=== PATIENT | male | born 1980 | race Caucasian/White ===

== ENCOUNTER 2020-08-10 13:36 | Inpatient (IN) | payer OTHER ==
[~2020-08-10] VITALS: Ht 180.3 cm; Wt 126.0 kg
[2020-08-10] MEDS ORDERED: GLIP5 PO (14:21)
[2020-08-10] MEDS ORDERED: ALBU8HFA IH (14:21)
[2020-08-10] MEDS ORDERED: LOSA50TA37 PO (14:21)
[2020-08-10] MEDS ORDERED: NAPR-1025 PO (14:21)
[2020-08-10] MEDS ORDERED: INSREG SQ (14:21)
[2020-08-10] MEDS ORDERED: AMLO-258 PO (14:21)
[2020-08-10] MEDS ORDERED: ATOR40TA28 PO (14:21)
[2020-08-10] MEDS ORDERED: GABA-1201 PO (14:21)
[2020-08-10] MEDS ORDERED: INSLAN SQ (14:21)
[2020-08-10] MEDS ORDERED: METF-960 PO (14:21)
[2020-08-10] MEDS ORDERED: ATEN-73 PO (14:21)
[2020-08-10] MEDS ORDERED: FURO40 PO (14:21)
[2020-08-10] MEDS ORDERED: CLOT15CR73 TP (14:21)
[2020-08-10 16:05] LABS: ANION GAP 8 mmol/L (8-16); CARBON DIOXIDE 29 mmol/L (22-29); CHLORIDE 103 mmol/L (98-107); CREATININE 1.13 mg/dL (0.60-1.30); GLOMERULAR FILTR. RATE CALC > 60 mL/min (>60); GLUCOSE,RANDOM 244 mg/dL (70-110); POTASSIUM 4.4 mmol/L (3.5-5.1); SODIUM SERUM 140 mmol/L (136-145); UREA NITROGEN, BLOOD 21 mg/dL (7-18)
[2020-08-10 16:19] LABS: COVID AG,FIA SOURCE NASOPHARYNGEAL
[2020-08-10 16:34] LABS: ALANINE AMINOTRANSFERASE 70 U/L (12-78); ALBUMIN 3.7 g/dL (3.4-5.0); ALKALINE PHOSPHATASE 123 U/L (46-116); ASPARTATE AMINOTRANSFERASE 25 U/L (15-37); BILIRUBIN,TOTAL 0.3 mg/dL (0.1-1.0); CREATINE KINASE, TOTAL ONLY 356 U/L (39-308); TOTAL PROTEIN, SERUM 7.9 g/dL (6.4-8.2)
[2020-08-10 16:59] LABS: AMPHET/METH SCREEN,URINE NEGATIVE (NEGATIVE); BARBITURATE SCREEN, URINE NEGATIVE (NEGATIVE); BENZODIAZEPINES SCREEN,URINE NEGATIVE (NEGATIVE); CANNABINOID SCREEN,URINE NEGATIVE (NEGATIVE); COCAINE SCREEN,URINE NEGATIVE (NEGATIVE); METHADONE SCREEN, URINE NEGATIVE (NEGATIVE); OPIATE SCREEN,URINE NEGATIVE (NEGATIVE)
[2020-08-10] MEDS ORDERED: VANCOMYCIN HCL 1 GM/D5% WATER 200 ML IV ONE ×2 (17:00→23:00)
[2020-08-10] MEDS ORDERED: 0.9% SODIUM CHLORIDE 10 ML SYRINGE IVP PRN (17:00)
[2020-08-10] MEDS ORDERED: ONDANSETRON HCL 4 MG/2 ML VIAL IVP PRN (17:00)
[2020-08-10] MEDS ORDERED: ACETAMINOPHEN 325 MG TABLET PO PRN ×2 (17:00→17:45)
[2020-08-10] MEDS ORDERED: KETOROLAC TROMETHAMINE 30 MG/ML VIAL IVP ONE ×2 (17:00→21:15)
[2020-08-10 17:02] LABS: PHENCYCLIDINE SCREEN,URINE NEGATIVE (NEGATIVE)
[2020-08-10] MEDS ORDERED: DEXTROSE 50%-WATER 25 GM/50 ML SYRINGE IVP PRN (17:45)
[2020-08-10] MEDS ORDERED: ALBUTEROL SULFATE HFA 90 MCG/PUFF 8 GM INHALER IH PRN (18:15)
[2020-08-10 18:29] LABS: BASOPHILS % (AUTO) 0.6 % (0.0-2.0); EOSINOPHILS % (AUTO) 2.6 % (1.0-6.0); HEMATOCRIT 27.5 % (41-53); HEMOGLOBIN 8.9 g/dL (13.5-17.5); LYMPHOCYTES # (AUTO) 1.5 K/uL (1.0-4.8); LYMPHOCYTES % (AUTO) 18.1 % (22.0-44.0); MEAN CORPUSCULAR HEMOGLOBIN 27.4 pg (26.0-34.0); MEAN CORPUSCULAR HGB CONC 32.6 G/dL (31.0-37.0); MEAN CORPUSCULAR VOLUME 84 fL (80-100); MONOCYTES # (AUTO) 0.7 K/uL (0.1-1.0); MONOCYTES % (AUTO) 8.8 % (2.0-9.0); NEUTROPHILS # (AUTO) 5.9 K/uL (1.8-7.7); NEUTROPHILS % (AUTO) 69.9 % (40.0-70.0); PLATELET COUNT (AUTO) 287 K/uL (150-450); RED BLOOD CELL COUNT(AUTO) 3.27 MIL/uL (4.50-5.90)
[2020-08-10] MEDS ORDERED: PIPERACILLIN/TAZO 3.375 GM/D5W 50 ML IV ONE (20:15)
[2020-08-10] MEDS ORDERED: CARVEDILOL 3.125 MG TABLET PO SCH (21:00)
[2020-08-10] MEDS ORDERED: ACETAMINOPHEN 500 MG TABLET PO ONE (21:15)
[2020-08-10] MEDS: DOCUSATE SODIUM 100 MG CAPSULE PO SCH (21:40)
[2020-08-11] MEDS: HEPARIN SODIUM,PORCINE 5,000 UNITS/ML VIAL SQ SCH ×3 (00:26→16:11)
[2020-08-11 01:42] VITALS: BP 156/75
[2020-08-11] MEDS ORDERED: INFLUENZA VIRUS VACCINE QVS 2020-21 (6MO+)/PF 60 MCG/0.5 ML SYRINGE IM ONE (05:15)
[2020-08-11] MEDS: VANCOMYCIN HCL 1.25 GM in DEXTROSE 5%-WATER 250 ML IV SCH ×3 (06:54→23:04)
[2020-08-11] MEDS ORDERED: SODIUM CHLORIDE 0.9% 250 ML IV ONE (06:56)
[2020-08-11] MEDS: INSULIN LISPRO 100 UNITS/ML SQ PRN ×4 (07:10→20:41)
[2020-08-11 07:54] LABS: GLUCOMETER DEV NAME(LOC) 6N.2; GLUCOSE,POINT OF CARE 230 MG/DL (70-110)
[2020-08-11 08:42] LABS: ANION GAP 10 mmol/L (8-16); CALCIUM, TOTAL 8.6 mg/dL (8.8-10.5); CARBON DIOXIDE 25 mmol/L (22-29); CHLORIDE 105 mmol/L (98-107); CREATININE 1.22 mg/dL (0.60-1.30); GLOMERULAR FILTR. RATE CALC > 60 mL/min (>60); GLUCOSE,RANDOM 244 mg/dL (70-110); POTASSIUM 4.4 mmol/L (3.5-5.1); SODIUM SERUM 140 mmol/L (136-145); UREA NITROGEN, BLOOD 21 mg/dL (7-18)
[2020-08-11 09:29] VITALS: BP 149/91
[2020-08-11] MEDS: FUROSEMIDE 40 MG/4 ML VIAL IVP SCH (09:35)
[2020-08-11] MEDS: ATORVASTATIN CALCIUM 20 MG TABLET PO SCH (09:36)
[2020-08-11] MEDS: DOCUSATE SODIUM 100 MG CAPSULE PO SCH ×2 (09:36→20:33)
[2020-08-11] MEDS: FAMOTIDINE 20 MG TABLET PO SCH (09:36)
[2020-08-11] MEDS: ASPIRIN 81 MG CHEWABLE TABLET PO SCH (09:36)
[2020-08-11] MEDS: CARVEDILOL 6.25 MG TABLET PO SCH ×2 (09:36→20:33)
[2020-08-11] MEDS: INSULIN GLARGINE,HUM.REC.ANLOG 100 UNITS/ML SQ SCH ×2 (10:12→20:42)
[2020-08-11 13:13] LABS: GLUCOMETER DEV NAME(LOC) 6S.1; GLUCOSE,POINT OF CARE 292 MG/DL (70-110)
[2020-08-11] MEDS: GABAPENTIN 400 MG CAPSULE PO SCH ×2 (13:14→20:34)
[2020-08-11 18:20] LABS: GLUCOMETER DEV NAME(LOC) 6S.1; GLUCOSE,POINT OF CARE 287 MG/DL (70-110)
[2020-08-11 20:24] VITALS: BP 138/74
[2020-08-12 04:40] VITALS: BP 128/64
[2020-08-12] MEDS: INSULIN LISPRO 100 UNITS/ML SQ PRN ×4 (06:46→21:36)
[2020-08-12] MEDS: VANCOMYCIN HCL 1.25 GM in DEXTROSE 5%-WATER 250 ML IV SCH ×3 (06:48→22:43)
[2020-08-12] MEDS: GABAPENTIN 400 MG CAPSULE PO SCH ×2 (06:49→21:31)
[2020-08-12] MEDS: ASPIRIN 81 MG CHEWABLE TABLET PO SCH (08:00)
[2020-08-12] MEDS: ATORVASTATIN CALCIUM 20 MG TABLET PO SCH (08:00)
[2020-08-12] MEDS: HEPARIN SODIUM,PORCINE 5,000 UNITS/ML VIAL SQ SCH ×4 (08:00→23:40)
[2020-08-12] MEDS: FUROSEMIDE 40 MG/4 ML VIAL IVP SCH (08:00)
[2020-08-12] MEDS: DOCUSATE SODIUM 100 MG CAPSULE PO SCH ×2 (08:00→21:31)
[2020-08-12] MEDS: FAMOTIDINE 20 MG TABLET PO SCH (08:00)
[2020-08-12] MEDS: CARVEDILOL 6.25 MG TABLET PO SCH ×2 (08:00→21:31)
[2020-08-12] MEDS: INSULIN GLARGINE,HUM.REC.ANLOG 100 UNITS/ML SQ SCH ×2 (08:33→21:37)
[2020-08-12] MEDS ORDERED: GABAPENTIN 400 MG CAPSULE PO SCH (09:00)
[2020-08-12 09:40] VITALS: BP 150/76
[2020-08-12 11:55] LABS: GLUCOMETER DEV NAME(LOC) 6S.1; GLUCOSE,POINT OF CARE 364 MG/DL (70-110)
[2020-08-12 11:55] LABS: GLUCOMETER DEV NAME(LOC) 6S.1; GLUCOSE,POINT OF CARE 266 MG/DL (70-110)
[2020-08-12 12:57] LABS: ANION GAP 7 mmol/L (8-16); CALCIUM, TOTAL 8.7 mg/dL (8.8-10.5); CARBON DIOXIDE 27 mmol/L (22-29); CHLORIDE 99 mmol/L (98-107); CREATININE 1.19 mg/dL (0.60-1.30); GLOMERULAR FILTR. RATE CALC > 60 mL/min (>60); GLUCOSE,RANDOM 380 mg/dL (70-110); POTASSIUM 4.6 mmol/L (3.5-5.1); SODIUM SERUM 133 mmol/L (136-145); UREA NITROGEN, BLOOD 21 mg/dL (7-18); VANCOMYCIN,RANDOM 29.3 mcg/mL (25.0-50.0)
[2020-08-12 16:16] LABS: GLUCOMETER DEV NAME(LOC) 6S.1; GLUCOSE,POINT OF CARE 305 MG/DL (70-110)
[2020-08-12 16:23] VITALS: BP 151/84
[2020-08-12 20:15] VITALS: BP 136/74
[2020-08-12 21:16] LABS: GLUCOMETER DEV NAME(LOC) 6N.2; GLUCOSE,POINT OF CARE 359 MG/DL (70-110)
[2020-08-12 22:13] LABS: GLUCOMETER DEV NAME(LOC) 6S.1; GLUCOSE,POINT OF CARE 347 MG/DL (70-110)
[2020-08-13 04:15] VITALS: BP 147/71
[2020-08-13] MEDS: INSULIN LISPRO 100 UNITS/ML SQ PRN ×4 (05:52→21:21)
[2020-08-13 06:54] LABS: GLUCOMETER DEV NAME(LOC) 6N.2; GLUCOSE,POINT OF CARE 331 MG/DL (70-110)
[2020-08-13 07:24] LABS: HEMATOCRIT 30.8 % (41-53); HEMOGLOBIN 10.1 g/dL (13.5-17.5); LYMPHOCYTES # (AUTO) 1.6 K/uL (1.0-4.8); MEAN CORPUSCULAR HEMOGLOBIN 27.2 pg (26.0-34.0); MEAN CORPUSCULAR HGB CONC 32.8 G/dL (31.0-37.0); MEAN CORPUSCULAR VOLUME 83 fL (80-100); MONOCYTES # (AUTO) 0.6 K/uL (0.1-1.0); MONOCYTES % (AUTO) 7.3 % (2.0-9.0); NEUTROPHILS % (AUTO) 64.7 % (40.0-70.0); PLATELET COUNT (AUTO) 361 K/uL (150-450); RED BLOOD CELL COUNT(AUTO) 3.72 MIL/uL (4.50-5.90); RED CELL DISTRIBUTION WIDTH 14.4 % (11.5-14.5)
[2020-08-13 07:46] LABS: ANION GAP 9 mmol/L (8-16); CALCIUM, TOTAL 8.6 mg/dL (8.8-10.5); CARBON DIOXIDE 26 mmol/L (22-29); CHLORIDE 101 mmol/L (98-107); CREATININE 1.23 mg/dL (0.60-1.30); GLOMERULAR FILTR. RATE CALC > 60 mL/min (>60); GLUCOSE,RANDOM 340 mg/dL (70-110); POTASSIUM 4.9 mmol/L (3.5-5.1); SODIUM SERUM 136 mmol/L (136-145); UREA NITROGEN, BLOOD 26 mg/dL (7-18)
[2020-08-13 08:10] VITALS: BP 133/73
[2020-08-13] MEDS: ASPIRIN 81 MG CHEWABLE TABLET PO SCH (09:51)
[2020-08-13] MEDS: ATORVASTATIN CALCIUM 20 MG TABLET PO SCH (09:51)
[2020-08-13] MEDS: CARVEDILOL 6.25 MG TABLET PO SCH ×2 (09:53→21:12)
[2020-08-13] MEDS: HEPARIN SODIUM,PORCINE 5,000 UNITS/ML VIAL SQ SCH ×3 (09:53→23:25)
[2020-08-13] MEDS: DOCUSATE SODIUM 100 MG CAPSULE PO SCH ×2 (09:53→21:12)
[2020-08-13] MEDS: FAMOTIDINE 20 MG TABLET PO SCH (09:53)
[2020-08-13] MEDS ORDERED: INSULIN GLARGINE,HUM.REC.ANLOG 100 UNITS/ML SQ ONE (10:15)
[2020-08-13] MEDS ORDERED: ASPI-1111 PO (10:18)
[2020-08-13] MEDS ORDERED: CARV6 PO (10:19)
[2020-08-13] MEDS ORDERED: DOCU-275 PO (10:20)
[2020-08-13] MEDS ORDERED: FAMO20 PO (10:20)
[2020-08-13] MEDS ORDERED: SULF1TAB42 PO (10:23)
[2020-08-13] MEDS: GABAPENTIN 400 MG CAPSULE PO SCH ×2 (11:53→21:12)
[2020-08-13 14:20] LABS: GLUCOMETER DEV NAME(LOC) 6S.1; GLUCOSE,POINT OF CARE 373 MG/DL (70-110)
[2020-08-13] MEDS: MetFORMIN HCL 500 MG TABLET PO SCH (16:58)
[2020-08-13 17:52] LABS: GLUCOMETER DEV NAME(LOC) 6N.2; GLUCOSE,POINT OF CARE 336 MG/DL (70-110)
[2020-08-13 19:58] VITALS: BP 152/80
[2020-08-13] MEDS ORDERED: INSULIN GLARGINE,HUM.REC.ANLOG 100 UNITS/ML SQ SCH ×2 (21:00)
[2020-08-13] MEDS: SULFAMETHOX/TRIMETH DS 800-160 MG/TABLET PO SCH (21:12)
[2020-08-13] MEDS: INSULIN GLARGINE,HUM.REC.ANLOG 100 UNITS/ML SQ SCH (21:22)
[2020-08-13 21:46] LABS: GLUCOMETER DEV NAME(LOC) 6N.2; GLUCOSE,POINT OF CARE 341 MG/DL (70-110)
[2020-08-14 05:37] VITALS: BP 157/79
[2020-08-14] MEDS: INSULIN LISPRO 100 UNITS/ML SQ PRN ×4 (05:55→20:58)
[2020-08-14 06:43] LABS: GLUCOMETER DEV NAME(LOC) 6N.2; GLUCOSE,POINT OF CARE 305 MG/DL (70-110)
[2020-08-14 06:57] LABS: CREATININE 1.32 mg/dL (0.60-1.30); POTASSIUM 4.8 mmol/L (3.5-5.1); VANCOMYCIN,RANDOM 5.2 mcg/mL (25.0-50.0)
[2020-08-14 07:40] VITALS: BP 143/95
[2020-08-14] MEDS: ASPIRIN 81 MG CHEWABLE TABLET PO SCH (08:49)
[2020-08-14] MEDS: CARVEDILOL 6.25 MG TABLET PO SCH ×2 (08:49→20:34)
[2020-08-14] MEDS: ATORVASTATIN CALCIUM 20 MG TABLET PO SCH (08:49)
[2020-08-14] MEDS: DOCUSATE SODIUM 100 MG CAPSULE PO SCH ×2 (08:49→20:34)
[2020-08-14] MEDS: FAMOTIDINE 20 MG TABLET PO SCH (08:49)
[2020-08-14] MEDS: HEPARIN SODIUM,PORCINE 5,000 UNITS/ML VIAL SQ SCH ×3 (08:49→23:27)
[2020-08-14] MEDS: SULFAMETHOX/TRIMETH DS 800-160 MG/TABLET PO SCH ×2 (08:49→20:34)
[2020-08-14] MEDS: MetFORMIN HCL 500 MG TABLET PO SCH (08:49)
[2020-08-14] MEDS: GABAPENTIN 400 MG CAPSULE PO SCH ×2 (08:49→20:35)
[2020-08-14] MEDS: FUROSEMIDE 20 MG TABLET PO SCH (08:49)
[2020-08-14] MEDS: INSULIN GLARGINE,HUM.REC.ANLOG 100 UNITS/ML SQ SCH (08:55)
[2020-08-14] MEDS ORDERED: INSULIN GLARGINE,HUM.REC.ANLOG 100 UNITS/ML SQ ONE (11:15)
[2020-08-14] MEDS ORDERED: MetFORMIN HCL 500 MG TABLET PO SCH (18:00)
[2020-08-14 19:55] LABS: GLUCOMETER DEV NAME(LOC) 6N.2; GLUCOSE,POINT OF CARE 317 MG/DL (70-110)
[2020-08-14 19:55] LABS: GLUCOMETER DEV NAME(LOC) 6N.2; GLUCOSE,POINT OF CARE 318 MG/DL (70-110)
[2020-08-14 20:32] VITALS: BP 130/80
[2020-08-14] MEDS ORDERED: INSULIN GLARGINE,HUM.REC.ANLOG 100 UNITS/ML SQ SCH (21:00)
[2020-08-15 00:56] LABS: GLUCOMETER DEV NAME(LOC) 6N.2; GLUCOSE,POINT OF CARE 274 MG/DL (70-110)
[2020-08-15 05:26] VITALS: BP 141/86
[2020-08-15] MEDS: INSULIN LISPRO 100 UNITS/ML SQ PRN ×4 (05:55→21:02)
[2020-08-15 06:10] LABS: GLUCOMETER DEV NAME(LOC) 6S.1; GLUCOSE,POINT OF CARE 293 MG/DL (70-110)
[2020-08-15 06:54] LABS: CALCIUM, TOTAL 8.6 mg/dL (8.8-10.5); CREATININE 1.52 mg/dL (0.60-1.30); POTASSIUM 5.5 mmol/L (3.5-5.1)
[2020-08-15 07:39] VITALS: BP 126/73
[2020-08-15] MEDS: GABAPENTIN 400 MG CAPSULE PO SCH ×2 (08:23→21:03)
[2020-08-15] MEDS: SULFAMETHOX/TRIMETH DS 800-160 MG/TABLET PO SCH ×2 (08:23→21:03)
[2020-08-15] MEDS: FAMOTIDINE 20 MG TABLET PO SCH (08:23)
[2020-08-15] MEDS: DOCUSATE SODIUM 100 MG CAPSULE PO SCH ×2 (08:23→21:03)
[2020-08-15] MEDS: CARVEDILOL 6.25 MG TABLET PO SCH ×2 (08:24→21:03)
[2020-08-15] MEDS: ATORVASTATIN CALCIUM 20 MG TABLET PO SCH (08:24)
[2020-08-15] MEDS: ASPIRIN 81 MG CHEWABLE TABLET PO SCH (08:24)
[2020-08-15] MEDS: HEPARIN SODIUM,PORCINE 5,000 UNITS/ML VIAL SQ SCH ×2 (08:24→16:43)
[2020-08-15] MEDS: FUROSEMIDE 20 MG TABLET PO SCH (08:24)
[2020-08-15] MEDS: INSULIN GLARGINE,HUM.REC.ANLOG 100 UNITS/ML SQ SCH ×2 (08:40→21:03)
[2020-08-15 16:35] LABS: GLUCOMETER DEV NAME(LOC) 6N.2; GLUCOSE,POINT OF CARE 277 MG/DL (70-110)
[2020-08-15 19:48] LABS: GLUCOMETER DEV NAME(LOC) 6S.1; GLUCOSE,POINT OF CARE 304 MG/DL (70-110)
[2020-08-15 20:19] VITALS: BP 149/78
[2020-08-15 22:06] LABS: GLUCOMETER DEV NAME(LOC) 6N.2; GLUCOSE,POINT OF CARE 337 MG/DL (70-110)
[2020-08-16] MEDS: HEPARIN SODIUM,PORCINE 5,000 UNITS/ML VIAL SQ SCH ×3 (00:10→17:13)
[2020-08-16] MEDS: INSULIN LISPRO 100 UNITS/ML SQ PRN ×4 (05:29→21:59)
[2020-08-16 05:30] VITALS: BP 142/84
[2020-08-16 07:58] LABS: CALCIUM, TOTAL 8.6 mg/dL (8.8-10.5); CREATININE 1.54 mg/dL (0.60-1.30); POTASSIUM 4.7 mmol/L (3.5-5.1)
[2020-08-16] MEDS: DOCUSATE SODIUM 100 MG CAPSULE PO SCH ×2 (08:30→19:55)
[2020-08-16] MEDS: CARVEDILOL 6.25 MG TABLET PO SCH ×2 (08:30→19:55)
[2020-08-16] MEDS: FUROSEMIDE 20 MG TABLET PO SCH (08:30)
[2020-08-16] MEDS: GABAPENTIN 400 MG CAPSULE PO SCH ×2 (08:30→19:55)
[2020-08-16] MEDS: SULFAMETHOX/TRIMETH DS 800-160 MG/TABLET PO SCH (08:30)
[2020-08-16] MEDS: ASPIRIN 81 MG CHEWABLE TABLET PO SCH (08:30)
[2020-08-16] MEDS: FAMOTIDINE 20 MG TABLET PO SCH (08:30)
[2020-08-16] MEDS: ATORVASTATIN CALCIUM 20 MG TABLET PO SCH (08:30)
[2020-08-16] MEDS: INSULIN GLARGINE,HUM.REC.ANLOG 100 UNITS/ML SQ SCH ×3 (08:50→20:04)
[2020-08-16 08:51] VITALS: BP 140/81
[2020-08-16] MEDS ORDERED: SODIUM CHLORIDE 0.9% 1,000 ML IV ONE (09:00)
[2020-08-16 16:22] LABS: GLUCOMETER DEV NAME(LOC) 6N.2; GLUCOSE,POINT OF CARE 284 MG/DL (70-110)
[2020-08-16 16:23] LABS: GLUCOMETER DEV NAME(LOC) 6N.2; GLUCOSE,POINT OF CARE 293 MG/DL (70-110)
[2020-08-16] MEDS: GlipiZIDE 10 MG TABLET PO SCH (17:32)
[2020-08-16 19:19] LABS: GLUCOMETER DEV NAME(LOC) 6S.1; GLUCOSE,POINT OF CARE 373 MG/DL (70-110)
[2020-08-16 19:48] VITALS: BP 143/74
[2020-08-17] MEDS: HEPARIN SODIUM,PORCINE 5,000 UNITS/ML VIAL SQ SCH ×4 (00:01→23:20)
[2020-08-17 00:20] LABS: GLUCOMETER DEV NAME(LOC) 6S.1; GLUCOSE,POINT OF CARE 290 MG/DL (70-110)
[2020-08-17 05:12] VITALS: BP 126/62
[2020-08-17] MEDS: INSULIN LISPRO 100 UNITS/ML SQ PRN ×4 (06:28→20:19)
[2020-08-17] MEDS: GlipiZIDE 10 MG TABLET PO SCH ×2 (06:34→17:51)
[2020-08-17 07:39] LABS: CALCIUM, TOTAL 8.2 mg/dL (8.8-10.5); CREATININE 1.41 mg/dL (0.60-1.30); POTASSIUM 4.7 mmol/L (3.5-5.1)
[2020-08-17 07:48] LABS: GLUCOMETER DEV NAME(LOC) 6S.1; GLUCOSE,POINT OF CARE 257 MG/DL (70-110)
[2020-08-17] MEDS: ASPIRIN 81 MG CHEWABLE TABLET PO SCH (08:01)
[2020-08-17] MEDS: ATORVASTATIN CALCIUM 20 MG TABLET PO SCH (08:01)
[2020-08-17] MEDS: FUROSEMIDE 20 MG TABLET PO SCH (08:01)
[2020-08-17] MEDS: DOCUSATE SODIUM 100 MG CAPSULE PO SCH ×2 (08:01→20:12)
[2020-08-17] MEDS: FAMOTIDINE 20 MG TABLET PO SCH (08:01)
[2020-08-17] MEDS: GABAPENTIN 400 MG CAPSULE PO SCH ×2 (08:01→20:13)
[2020-08-17] MEDS: CARVEDILOL 6.25 MG TABLET PO SCH ×2 (08:01→20:13)
[2020-08-17] MEDS: INSULIN GLARGINE,HUM.REC.ANLOG 100 UNITS/ML SQ SCH ×2 (08:04→20:20)
[2020-08-17] MEDS ORDERED: INSULIN GLARGINE,HUM.REC.ANLOG 100 UNITS/ML SQ ONE (09:00)
[2020-08-17] MEDS ORDERED: INSULIN GLARGINE,HUM.REC.ANLOG 100 UNITS/ML SQ SCH (09:00)
[2020-08-17 09:13] VITALS: BP 131/74
[2020-08-17] MEDS ORDERED: ALBU8HFA IH ×2 (09:47)
[2020-08-17] MEDS ORDERED: ASPI-1111 PO (09:48)
[2020-08-17] MEDS ORDERED: ATEN-73 PO (09:48)
[2020-08-17] MEDS ORDERED: ATOR40TA28 PO (09:48)
[2020-08-17] MEDS ORDERED: FAMO20 PO (09:49)
[2020-08-17] MEDS ORDERED: CARV6 PO (09:49)
[2020-08-17] MEDS ORDERED: DOCU-275 PO (09:49)
[2020-08-17] MEDS ORDERED: FURO20 PO (09:49)
[2020-08-17] MEDS ORDERED: GABA-1201 PO (09:50)
[2020-08-17] MEDS ORDERED: INSREG SQ (09:51)
[2020-08-17] MEDS ORDERED: GLIP10 PO (09:52)
[2020-08-17] MEDS ORDERED: INSLAN SQ (09:53)
[2020-08-17] MEDS ORDERED: HEPA500018 SQ (09:53)
[2020-08-17] MEDS ORDERED: ACET-2865 PO (09:54)
[2020-08-17] MEDS ORDERED: INSU100V SQ (10:02)
[2020-08-17] MEDS ORDERED: INSULIN LISPRO 100 UNITS/ML SQ ONE (12:00)
[2020-08-17 12:23] LABS: GLUCOMETER DEV NAME(LOC) 6S.1; GLUCOSE,POINT OF CARE 375 MG/DL (70-110)
[2020-08-17 14:33] LABS: GLUCOMETER DEV NAME(LOC) 6S.1; GLUCOSE,POINT OF CARE 409 MG/DL (70-110)
[2020-08-17 18:37] LABS: GLUCOMETER DEV NAME(LOC) 6S.1; GLUCOSE,POINT OF CARE 293 MG/DL (70-110)
[2020-08-17 20:19] VITALS: BP 144/82
[2020-08-18 00:08] LABS: GLUCOMETER DEV NAME(LOC) 6S.1; GLUCOSE,POINT OF CARE 402 MG/DL (70-110)
[2020-08-18 04:15] VITALS: BP 135/78
[2020-08-18] MEDS: INSULIN LISPRO 100 UNITS/ML SQ PRN (05:53)
[2020-08-18 06:16] LABS: GLUCOMETER DEV NAME(LOC) 6N.1; GLUCOSE,POINT OF CARE 266 MG/DL (70-110)
[2020-08-18] MEDS: GlipiZIDE 10 MG TABLET PO SCH (06:27)
[2020-08-18 08:00] VITALS: BP 134/80
[2020-08-18] MEDS: DOCUSATE SODIUM 100 MG CAPSULE PO SCH (08:30)
[2020-08-18] MEDS: CARVEDILOL 6.25 MG TABLET PO SCH (08:30)
[2020-08-18] MEDS: ASPIRIN 81 MG CHEWABLE TABLET PO SCH (08:30)
[2020-08-18] MEDS: GABAPENTIN 400 MG CAPSULE PO SCH (08:31)
[2020-08-18] MEDS: HEPARIN SODIUM,PORCINE 5,000 UNITS/ML VIAL SQ SCH (08:31)
[2020-08-18] MEDS: FUROSEMIDE 20 MG TABLET PO SCH (08:31)
[2020-08-18] MEDS: ATORVASTATIN CALCIUM 20 MG TABLET PO SCH (08:31)
[2020-08-18] MEDS: FAMOTIDINE 20 MG TABLET PO SCH (08:31)
[2020-08-18] MEDS: INSULIN GLARGINE,HUM.REC.ANLOG 100 UNITS/ML SQ SCH (08:40)
[2020-08-18 08:41] VITALS: BP_SYST 133
[2020-08-18] MEDS ORDERED: ATOR20TA86 PO (10:41)
== END 2020-08-18 12:15 | DRG 603 ==
LOC: EMS 13:40 → 6N 17:52 → 6S 08-13 08:19
PROVIDERS: ADMIT Internal Medicine; ATTEND Internal Medicine
DX: L03.031 Cellulitis of right toe (principal); E44.0 Moderate protein-calorie malnutrition; N17.9 Acute kidney failure, unspecified; E87.1 Hypo-osmolality and hyponatremia; E11.65 Type 2 diabetes mellitus with hyperglycemia; E11.40 Type 2 diabetes mellitus with diabetic neuropathy, unspecified; J45.909 Unspecified asthma, uncomplicated; E66.01 Morbid (severe) obesity due to excess calories; E78.00 Pure hypercholesterolemia, unspecified; Z20.828 Contact with and (suspected) exposure to other viral communicable diseases; E11.621 Type 2 diabetes mellitus with foot ulcer; D63.8 Anemia in other chronic diseases classified elsewhere; L97.519 Non-pressure chronic ulcer of other part of right foot with unspecified severity; L97.529 Non-pressure chronic ulcer of other part of left foot with unspecified severity; Z79.4 Long term (current) use of insulin; Z87.891 Personal history of nicotine dependence; Z68.38 Body mass index [BMI] 38.0-38.9, adult; Z79.899 Other long term (current) drug therapy
CPT/HCPCS: 83735; 87426; 93005; 93306; J1644; J1815; J1885; J1940; J2543; J3370; J7030; J7050; J7060; 36415-L1; 36415-TC; 71045-TC; 80202-TC; U0003

== ENCOUNTER 2021-03-19 08:40 | Inpatient (IN) | payer OTHER ==
[~2021-03-19] VITALS: Ht 170.2 cm; Wt 129.3 kg
[~2021-03-19 08:40] MED LIST: ACET-2247 PO; ALBU8HFA IH; AMLO10TA55 PO; ASPI-1444 PO; ATOR20TA86 PO; CARV6 PO; DOCU-270 PO; FAMO20 PO; FLUC50TA PO; FURO20 PO; GABA-1201 PO; GLIP10 PO; HEPA500018 SQ; INSLAN SQ; INSREG SQ; INSU100V SQ
[2021-03-19] MEDS ORDERED: INSREG SQ (09:03)
[2021-03-19] MEDS ORDERED: LOSA50TA37 PO (09:03)
[2021-03-19] MEDS ORDERED: GLIP5 PO (09:03)
[2021-03-19] MEDS ORDERED: METF-961 PO (09:03)
[2021-03-19] MEDS ORDERED: OXYB5XL PO (09:03)
[2021-03-19] MEDS ORDERED: TAMS-13 PO (09:03)
[2021-03-19] MEDS ORDERED: OMEP20 PO (09:03)
[2021-03-19 09:40] LABS: COVID AG,FIA SOURCE NASOPHARYNGEAL
[2021-03-19] MEDS ORDERED: *CLINICAL-LEVOFLOXACIN IVPB DOSING CLINICAL ONE (10:15)
[2021-03-19] MEDS ORDERED: MetroNIDAZOLE 500 MG/NACL 100 ML IV ONE (10:15)
[2021-03-19] MEDS ORDERED: SODIUM CHLORIDE 0.9% 1,000 ML IV ONE (10:15)
[2021-03-19] MEDS ORDERED: LEVOFLOXACIN 750 MG/D5% WATER 150 ML IV ONE (11:30)
[2021-03-19 11:50] LABS: BASOPHILS % (AUTO) 0.2 % (0.0-2.0); EOSINOPHILS % (AUTO) 1.4 % (1.0-6.0); HEMATOCRIT 32.7 % (41-53); LYMPHOCYTES # (AUTO) 0.6 K/uL (1.0-4.8); LYMPHOCYTES % (AUTO) 5.9 % (22.0-44.0); MEAN CORPUSCULAR HEMOGLOBIN 23.6 pg (26.0-34.0); MEAN CORPUSCULAR HGB CONC 30.7 G/dL (31.0-37.0); MEAN CORPUSCULAR VOLUME 77 fL (80-100); MONOCYTES # (AUTO) 0.2 K/uL (0.1-1.0); MONOCYTES % (AUTO) 1.9 % (2.0-9.0); NEUTROPHILS # (AUTO) 9.1 K/uL (1.8-7.7); PLATELET COUNT (AUTO) 244 K/uL (150-450); RED BLOOD CELL COUNT(AUTO) 4.26 MIL/uL (4.50-5.90); RED CELL DISTRIBUTION WIDTH 17.2 % (11.5-14.5)
[2021-03-19 11:51] LABS: NEUTROPHILS % (AUTO) 90.6 % (40.0-70.0)
[2021-03-19 11:59] LABS: CALCIUM, TOTAL 8.9 mg/dL (8.8-10.5); CREATININE 1.47 mg/dL (0.60-1.30); POTASSIUM 5.4 mmol/L (3.5-5.1)
[2021-03-19 12:06] LABS: ALBUMIN 3.3 g/dL (3.4-5.0); BILIRUBIN,TOTAL 0.2 mg/dL (0.1-1.0); TOTAL PROTEIN, SERUM 7.5 g/dL (6.4-8.2)
[2021-03-19 12:40] LABS: APPEARANCE,URINE CLEAR (CLEAR); BILIRUBIN,URINE NEGATIVE (NEGATIVE); GLUCOSE, URINE (UA) NEGATIVE (NEGATIVE); KETONES,URINE NEGATIVE (NEGATIVE); LEUKOCYTE ESTERASE ,URINE NEGATIVE (NEGATIVE); NITRATE,URINE NEGATIVE (NEGATIVE); OCCULT BLOOD,URINE NEGATIVE (NEGATIVE); PROTEIN,URINE NEGATIVE (NEGATIVE); UROBILINOGEN,URINE 0.2 mg/dL (<=1.0)
[2021-03-19 12:45] LABS: BACTERIA,URINE None Seen /HPF (None Seen); RBC,URINE None Seen /HPF (0-2); WBC,URINE None Seen /HPF (0-5)
[2021-03-19] MEDS ORDERED: 0.9% SODIUM CHLORIDE 10 ML SYRINGE IVP PRN (12:45)
[2021-03-19] MEDS ORDERED: ONDANSETRON HCL 4 MG/2 ML VIAL IVP PRN ×2 (12:45→16:15)
[2021-03-19] MEDS ORDERED: ACETAMINOPHEN 325 MG TABLET PO PRN ×2 (12:45→16:15)
[2021-03-19 13:12] LABS: AMPHET/METH SCREEN,URINE NEGATIVE (NEGATIVE); BARBITURATE SCREEN, URINE NEGATIVE (NEGATIVE); BENZODIAZEPINES SCREEN,URINE NEGATIVE (NEGATIVE); CANNABINOID SCREEN,URINE NEGATIVE (NEGATIVE); COCAINE SCREEN,URINE NEGATIVE (NEGATIVE); METHADONE SCREEN, URINE NEGATIVE (NEGATIVE); OPIATE SCREEN,URINE NEGATIVE (NEGATIVE)
[2021-03-19 13:13] LABS: PHENCYCLIDINE SCREEN,URINE NEGATIVE (NEGATIVE)
[2021-03-19] MEDS ORDERED: BISACODYL 10 MG RECTAL RECTAL SUPPOSITORY PR PRN (16:15)
[2021-03-19] MEDS ORDERED: ALBUTEROL SULFATE 2.5 MG/0.5 ML NEB SOLUTION NEB PRN (16:15)
[2021-03-19] MEDS ORDERED: MAGNESIUM HYDROXIDE SUSPENSION 30 ML UDCUP PO PRN (16:15)
[2021-03-19] MEDS ORDERED: IPRATROPIUM BROMIDE 0.5 MG/2.5 ML NEB SOLUTION NEB PRN (16:15)
[2021-03-19] MEDS ORDERED: DEXTROSE 50%-WATER 25 GM/50 ML SYRINGE IVP PRN (16:15)
[2021-03-19] MEDS ORDERED: SODIUM POLYSTYRENE SULFONATE 15 GM/60 ML SUSPENSION BOTTLE PO ONE (17:15)
[2021-03-19 17:39] LABS: C-REACTIVE PROTEIN QUANT 6.1 mg/dL (0.00-0.30)
[2021-03-19 17:42] LABS: D-DIMER 0.59 mg/L FEU (0.00-0.50)
[2021-03-19] MEDS: MetFORMIN HCL 850 MG TABLET PO SCH (18:04)
[2021-03-19] MEDS: INSULIN LISPRO 100 UNITS/ML SQ PRN ×2 (18:07→21:17)
[2021-03-19] MEDS ORDERED: PNEUMOCOCCAL VACCINE POLYVALENT 0.5 ML VIAL [PPSV23] IM. ONE (18:15)
[2021-03-19 20:23] VITALS: BP 161/96
[2021-03-19] MEDS: OXYBUTYNIN CHLORIDE 5 MG ER TABLET PO SCH (20:50)
[2021-03-19] MEDS: CARVEDILOL 6.25 MG TABLET PO SCH (20:51)
[2021-03-19] MEDS: GABAPENTIN 400 MG CAPSULE PO SCH (20:51)
[2021-03-19] MEDS: ZOLPIDEM TARTRATE 5 MG TABLET PO PRN (20:51)
[2021-03-19] MEDS ORDERED: INSULIN GLARGINE,HUM.REC.ANLOG 100 UNITS/ML SQ SCH (21:00)
[2021-03-19] MEDS: DOCUSATE SODIUM 100 MG CAPSULE PO SCH (21:00)
[2021-03-19] MEDS: INSULIN GLARGINE,HUM.REC.ANLOG 100 UNITS/ML SQ SCH (21:17)
[2021-03-19] MEDS: HEPARIN SODIUM,PORCINE 5,000 UNITS/ML VIAL SQ SCH (23:50)
[2021-03-19] MEDS: MethylPREDNISolone SOD SUCC 125 MG/2 ML VIAL IVP SCH (23:50)
[2021-03-20 00:12] VITALS: BP 145/93
[2021-03-20] MEDS: IPRATROPIUM BROMIDE HFA 17 MCG/PUFF 12.9 GM INHALER IH PRN (03:47)
[2021-03-20] MEDS: ALBUTEROL SULFATE HFA 90 MCG/PUFF 8 GM INHALER IH PRN (03:47)
[2021-03-20 04:25] VITALS: BP 140/82
[2021-03-20] MEDS: INSULIN LISPRO 100 UNITS/ML SQ PRN ×4 (05:51→21:21)
[2021-03-20] MEDS: GlipiZIDE 5 MG TABLET PO SCH (05:52)
[2021-03-20 06:36] LABS: BASOPHILS % (AUTO) 0.2 % (0.0-2.0); EOSINOPHILS % (AUTO) 0 % (1.0-6.0); HEMATOCRIT 29.3 % (41-53); HEMOGLOBIN 9.4 g/dL (13.5-17.5); LYMPHOCYTES # (AUTO) 0.6 K/uL (1.0-4.8); LYMPHOCYTES % (AUTO) 5.6 % (22.0-44.0); MEAN CORPUSCULAR HEMOGLOBIN 24.1 pg (26.0-34.0); MEAN CORPUSCULAR HGB CONC 32.1 G/dL (31.0-37.0); MEAN CORPUSCULAR VOLUME 75 fL (80-100); MONOCYTES # (AUTO) 0.3 K/uL (0.1-1.0); MONOCYTES % (AUTO) 2.4 % (2.0-9.0); NEUTROPHILS # (AUTO) 9.9 K/uL (1.8-7.7); PLATELET COUNT (AUTO) 259 K/uL (150-450); RED CELL DISTRIBUTION WIDTH 16.9 % (11.5-14.5)
[2021-03-20 06:39] LABS: NEUTROPHILS % (AUTO) 91.8 % (40.0-70.0)
[2021-03-20 06:49] LABS: CREATININE 1.31 mg/dL (0.60-1.30)
[2021-03-20 08:05] VITALS: BP 154/72
[2021-03-20] MEDS: LOSARTAN POTASSIUM 50 MG TABLET PO SCH (08:51)
[2021-03-20] MEDS: ATORVASTATIN CALCIUM 20 MG TABLET PO SCH (08:51)
[2021-03-20] MEDS: TAMSULOSIN HCL 0.4 MG CAPSULE PO SCH (08:51)
[2021-03-20] MEDS: CARVEDILOL 6.25 MG TABLET PO SCH ×2 (08:51→21:06)
[2021-03-20] MEDS: GABAPENTIN 400 MG CAPSULE PO SCH ×2 (08:51→21:06)
[2021-03-20] MEDS: PANTOPRAZOLE SODIUM 40 MG DR TABLET PO SCH (08:52)
[2021-03-20] MEDS: MethylPREDNISolone SOD SUCC 125 MG/2 ML VIAL IVP SCH ×2 (08:52→17:17)
[2021-03-20] MEDS: HEPARIN SODIUM,PORCINE 5,000 UNITS/ML VIAL SQ SCH ×2 (08:52→17:17)
[2021-03-20] MEDS: MetFORMIN HCL 850 MG TABLET PO SCH ×3 (08:52→17:17)
[2021-03-20] MEDS: ASPIRIN 81 MG DR TABLET PO SCH (08:52)
[2021-03-20] MEDS: INSULIN GLARGINE,HUM.REC.ANLOG 100 UNITS/ML SQ SCH ×2 (08:53→21:22)
[2021-03-20] MEDS: DOCUSATE SODIUM 100 MG CAPSULE PO SCH ×2 (09:00→21:06)
[2021-03-20] MEDS ORDERED: OMEPRAZOLE 20 MG CAPSULE PO SCH (09:00)
[2021-03-20] MEDS: FUROSEMIDE 20 MG TABLET PO SCH (09:00)
[2021-03-20 10:58] LABS: GLUCOMETER DEV NAME(LOC) 5S.2B; GLUCOSE,POINT OF CARE 480 MG/DL (70-110)
[2021-03-20 10:58] LABS: GLUCOMETER DEV NAME(LOC) 5S.2B; GLUCOSE,POINT OF CARE 329 MG/DL (70-110)
[2021-03-20 10:58] LABS: GLUCOMETER DEV NAME(LOC) 5S.2B; GLUCOSE,POINT OF CARE 339 MG/DL (70-110)
[2021-03-20 12:04] VITALS: BP 139/69
[2021-03-20] MEDS: LEVOFLOXACIN 750 MG/D5% WATER 150 ML IV SCH (12:09)
[2021-03-20 16:06] VITALS: BP 141/81
[2021-03-20 18:05] LABS: GLUCOMETER DEV NAME(LOC) 5S.2B; GLUCOSE,POINT OF CARE 391 MG/DL (70-110)
[2021-03-20 18:05] LABS: GLUCOMETER DEV NAME(LOC) 5S.2B; GLUCOSE,POINT OF CARE 339 MG/DL (70-110)
[2021-03-20 19:30] VITALS: BP 150/77
[2021-03-20 20:52] LABS: C-REACTIVE PROTEIN QUANT 2.84 mg/dL (0.00-0.30)
[2021-03-20] MEDS: OXYBUTYNIN CHLORIDE 5 MG ER TABLET PO SCH (21:06)
[2021-03-20] MEDS: ZOLPIDEM TARTRATE 5 MG TABLET PO PRN (21:07)
[2021-03-20 23:12] LABS: GLUCOMETER DEV NAME(LOC) 5S.2B; GLUCOSE,POINT OF CARE 388 MG/DL (70-110)
[2021-03-21] VITALS (9 sets, daily range): BP systolic 153–183; BP diastolic 80–95
[2021-03-21] MEDS: HEPARIN SODIUM,PORCINE 5,000 UNITS/ML VIAL SQ SCH ×3 (00:54→16:00)
[2021-03-21] MEDS: MethylPREDNISolone SOD SUCC 125 MG/2 ML VIAL IVP SCH ×3 (00:54→16:00)
[2021-03-21] MEDS ORDERED: HydrALAZINE HCL 20 MG/ML VIAL IVP PRN (03:45)
[2021-03-21] MEDS: GlipiZIDE 5 MG TABLET PO SCH (06:29)
[2021-03-21] MEDS: INSULIN LISPRO 100 UNITS/ML SQ PRN ×4 (06:38→20:56)
[2021-03-21 06:45] LABS: BASOPHILS % (AUTO) 0.1 % (0.0-2.0); EOSINOPHILS % (AUTO) 0 % (1.0-6.0); HEMATOCRIT 29.8 % (41-53); HEMOGLOBIN 9.3 g/dL (13.5-17.5); LYMPHOCYTES # (AUTO) 0.6 K/uL (1.0-4.8); LYMPHOCYTES % (AUTO) 4.8 % (22.0-44.0); MEAN CORPUSCULAR HEMOGLOBIN 23.9 pg (26.0-34.0); MEAN CORPUSCULAR HGB CONC 31.3 G/dL (31.0-37.0); MEAN CORPUSCULAR VOLUME 76 fL (80-100); MONOCYTES # (AUTO) 0.4 K/uL (0.1-1.0); MONOCYTES % (AUTO) 3.5 % (2.0-9.0); NEUTROPHILS # (AUTO) 11.6 K/uL (1.8-7.7); PLATELET COUNT (AUTO) 288 K/uL (150-450)
[2021-03-21 06:47] LABS: NEUTROPHILS % (AUTO) 91.6 % (40.0-70.0)
[2021-03-21 06:51] LABS: ANION GAP 8 mmol/L (8-16); CALCIUM, TOTAL 8.2 mg/dL (8.8-10.5); CARBON DIOXIDE 27 mmol/L (22-29); CHLORIDE 102 mmol/L (98-107); CREATININE 1.22 mg/dL (0.60-1.30); GLOMERULAR FILTR. RATE CALC > 60 mL/min (>60); GLUCOSE,RANDOM 387 mg/dL (70-110); POTASSIUM 4.8 mmol/L (3.5-5.1); SODIUM SERUM 137 mmol/L (136-145); UREA NITROGEN, BLOOD 35 mg/dL (7-18)
[2021-03-21] MEDS: ATORVASTATIN CALCIUM 20 MG TABLET PO SCH (08:23)
[2021-03-21] MEDS: MetFORMIN HCL 850 MG TABLET PO SCH ×3 (08:23→17:27)
[2021-03-21] MEDS: DOCUSATE SODIUM 100 MG CAPSULE PO SCH ×2 (08:23→20:34)
[2021-03-21] MEDS: CARVEDILOL 6.25 MG TABLET PO SCH ×2 (08:23→20:34)
[2021-03-21] MEDS: LOSARTAN POTASSIUM 50 MG TABLET PO SCH (08:24)
[2021-03-21] MEDS: ASPIRIN 81 MG DR TABLET PO SCH (08:24)
[2021-03-21] MEDS: INSULIN GLARGINE,HUM.REC.ANLOG 100 UNITS/ML SQ SCH ×2 (08:38→20:57)
[2021-03-21] MEDS: TAMSULOSIN HCL 0.4 MG CAPSULE PO SCH (08:39)
[2021-03-21] MEDS: PANTOPRAZOLE SODIUM 40 MG DR TABLET PO SCH (08:40)
[2021-03-21] MEDS: GABAPENTIN 400 MG CAPSULE PO SCH ×2 (08:40→20:34)
[2021-03-21] MEDS: FUROSEMIDE 20 MG TABLET PO SCH (09:42)
[2021-03-21] MEDS: LEVOFLOXACIN 750 MG/D5% WATER 150 ML IV SCH (12:13)
[2021-03-21 13:12] LABS: GLUCOMETER DEV NAME(LOC) 5S.2B; GLUCOSE,POINT OF CARE 386 MG/DL (70-110)
[2021-03-21 13:12] LABS: GLUCOMETER DEV NAME(LOC) 5S.2B; GLUCOSE,POINT OF CARE 359 MG/DL (70-110)
[2021-03-21] MEDS ORDERED: CloNIDine HCL 0.1 MG TABLET PO SCH (16:00)
[2021-03-21] MEDS: OXYBUTYNIN CHLORIDE 5 MG ER TABLET PO SCH (20:34)
[2021-03-21 20:51] LABS: GLUCOMETER DEV NAME(LOC) 5S.2B; GLUCOSE,POINT OF CARE 335 MG/DL (70-110)
[2021-03-21] MEDS: IPRATROPIUM BROMIDE HFA 17 MCG/PUFF 12.9 GM INHALER IH PRN (20:51)
[2021-03-21] MEDS: ALBUTEROL SULFATE HFA 90 MCG/PUFF 8 GM INHALER IH PRN (20:51)
[2021-03-22] MEDS: CloNIDine HCL 0.1 MG TABLET PO PRN (00:07)
[2021-03-22 04:11] VITALS: BP 140/78
[2021-03-22 06:20] LABS: GLUCOMETER DEV NAME(LOC) 5N.3; GLUCOSE,POINT OF CARE 347 MG/DL (70-110)
[2021-03-22] MEDS: GlipiZIDE 5 MG TABLET PO SCH (06:30)
[2021-03-22] MEDS: MethylPREDNISolone SOD SUCC 125 MG/2 ML VIAL IVP SCH ×4 (08:00→23:29)
[2021-03-22] MEDS: HEPARIN SODIUM,PORCINE 5,000 UNITS/ML VIAL SQ SCH ×4 (08:00→23:29)
[2021-03-22] MEDS: MetFORMIN HCL 850 MG TABLET PO SCH ×3 (08:00→17:46)
[2021-03-22 08:06] VITALS: BP 164/95
[2021-03-22] MEDS: TAMSULOSIN HCL 0.4 MG CAPSULE PO SCH (08:11)
[2021-03-22] MEDS: CARVEDILOL 6.25 MG TABLET PO SCH ×2 (08:11→20:21)
[2021-03-22] MEDS: LOSARTAN POTASSIUM 50 MG TABLET PO SCH (08:12)
[2021-03-22] MEDS: ATORVASTATIN CALCIUM 20 MG TABLET PO SCH (08:12)
[2021-03-22] MEDS: DOCUSATE SODIUM 100 MG CAPSULE PO SCH ×2 (08:12→20:21)
[2021-03-22] MEDS: ASPIRIN 81 MG DR TABLET PO SCH (08:12)
[2021-03-22] MEDS: FUROSEMIDE 20 MG TABLET PO SCH (08:12)
[2021-03-22] MEDS: PANTOPRAZOLE SODIUM 40 MG DR TABLET PO SCH (08:12)
[2021-03-22] MEDS: GABAPENTIN 400 MG CAPSULE PO SCH ×2 (08:13→20:21)
[2021-03-22] MEDS: INSULIN GLARGINE,HUM.REC.ANLOG 100 UNITS/ML SQ SCH ×2 (09:00→20:31)
[2021-03-22 11:29] VITALS: BP 157/90
[2021-03-22 11:39] LABS: BASOPHILS % (AUTO) 0.3 % (0.0-2.0); EOSINOPHILS % (AUTO) 0.5 % (1.0-6.0); HEMOGLOBIN 9.4 g/dL (13.5-17.5); LYMPHOCYTES # (AUTO) 2.4 K/uL (1.0-4.8); LYMPHOCYTES % (AUTO) 22.9 % (22.0-44.0); MEAN CORPUSCULAR HGB CONC 31.5 G/dL (31.0-37.0); MEAN CORPUSCULAR VOLUME 76 fL (80-100); MONOCYTES # (AUTO) 1.1 K/uL (0.1-1.0); MONOCYTES % (AUTO) 10.2 % (2.0-9.0); NEUTROPHILS # (AUTO) 6.9 K/uL (1.8-7.7); NEUTROPHILS % (AUTO) 66.1 % (40.0-70.0); PLATELET COUNT (AUTO) 258 K/uL (150-450); RED BLOOD CELL COUNT(AUTO) 3.94 MIL/uL (4.50-5.90); RED CELL DISTRIBUTION WIDTH 17.2 % (11.5-14.5)
[2021-03-22 11:41] LABS: GLUCOMETER DEV NAME(LOC) 5S.2B; GLUCOSE,POINT OF CARE 251 MG/DL (70-110)
[2021-03-22] MEDS ORDERED: KETOROLAC TROMETHAMINE 60 MG/2 ML VIAL IM ONE (12:00)
[2021-03-22] MEDS ORDERED: ONDANSETRON HCL 4 MG/2 ML VIAL IVP ONE (12:00)
[2021-03-22] MEDS ORDERED: FentaNYL CITRATE PF 100 MCG/2 ML VIAL IVP ONE (12:00)
[2021-03-22] MEDS ORDERED: GLYCOPYRROLATE 0.2 MG/ML VIAL IM ONE (12:00)
[2021-03-22] MEDS ORDERED: NEOSTIGMINE METHYLSULFATE 1 MG/ML 10 ML VIAL IVP ONE (12:00)
[2021-03-22] MEDS ORDERED: 0.9% SODIUM CHLORIDE 10 ML VIAL IVP ONE (12:00)
[2021-03-22] MEDS ORDERED: DEXAMETHASONE SOD PHOS 4 MG/ML VIAL IVP ONE (12:00)
[2021-03-22] MEDS ORDERED: EPHEDrine SULFATE 50 MG/ML VIAL IM ONE (12:00)
[2021-03-22] MEDS ORDERED: PROPOFOL 1% 20 ML VIAL IVP ONE (12:00)
[2021-03-22] MEDS ORDERED: ROCURONIUM BROMIDE 10 MG/ML 5 ML VIAL IVP ONE (12:00)
[2021-03-22] MEDS ORDERED: LIDOCAINE/PF 2% 5 ML VIAL IM ONE (12:00)
[2021-03-22] MEDS ORDERED: SUCCINYLCHOLINE CHLORIDE 20 MG/ML 10 ML VIAL IVP ONE (12:00)
[2021-03-22] MEDS: LEVOFLOXACIN 750 MG/D5% WATER 150 ML IV SCH (12:00)
[2021-03-22] MEDS ORDERED: MIDAZOLAM HCL 2 MG/2 ML VIAL IVP ONE (12:00)
[2021-03-22 12:03] LABS: ANION GAP 4 mmol/L (8-16); CALCIUM, TOTAL 8.2 mg/dL (8.8-10.5); CARBON DIOXIDE 31 mmol/L (22-29); CHLORIDE 103 mmol/L (98-107); CREATININE 1.01 mg/dL (0.60-1.30); GLOMERULAR FILTR. RATE CALC > 60 mL/min (>60); GLUCOSE,RANDOM 276 mg/dL (70-110); POTASSIUM 4.4 mmol/L (3.5-5.1); SODIUM SERUM 138 mmol/L (136-145); UREA NITROGEN, BLOOD 27 mg/dL (7-18)
[2021-03-22] MEDS ORDERED: BUPIVACAINE HCL/PF 0.25% 30 ML VIAL ONE (12:26)
[2021-03-22] MEDS ORDERED: DOXYCYCLINE HYCLATE 100 MG/VIAL IPL ONE (12:30)
[2021-03-22] MEDS ORDERED: RINGERS SOLUTION,LACTATED 1,000 ML IV ONE ×2 (14:00)
[2021-03-22] MEDS ORDERED: SODIUM CHLORIDE 0.9% 1,000 ML ONE (14:34)
[2021-03-22] MEDS ORDERED: VANCOMYCIN HCL 1 GM/VIAL ONE (15:25)
[2021-03-22] MEDS ORDERED: SODIUM CHLORIDE 0.9% 500 ML IV ONE (15:27)
[2021-03-22] MEDS ORDERED: SODIUM CHLORIDE 0.9% 100 ML ONE (15:34)
[2021-03-22] MEDS ORDERED: SODIUM CHLORIDE 0.9% 20 ML ONE (15:34)
[2021-03-22] MEDS ORDERED: HYDROmorphone 2 MG/ML VIAL ONE (16:25)
[2021-03-22] MEDS: HYDROmorphone 2 MG/ML VIAL IVP PRN ×3 (16:26→16:47)
[2021-03-22] MEDS ORDERED: FentaNYL CITRATE PF 100 MCG/2 ML VIAL IVP PRN (16:30)
[2021-03-22 16:37] LABS: GLUCOMETER DEV NAME(LOC) SDS.; GLUCOSE,POINT OF CARE 228 MG/DL (70-110)
[2021-03-22 17:03] LABS: GLUCOMETER DEV NAME(LOC) 5N.3; GLUCOSE,POINT OF CARE 254 MG/DL (70-110)
[2021-03-22] MEDS: INSULIN LISPRO 100 UNITS/ML SQ PRN ×2 (17:59→20:30)
[2021-03-22 20:11] VITALS: BP 154/77
[2021-03-22 20:12] LABS: GLUCOMETER DEV NAME(LOC) 5N.1C; GLUCOSE,POINT OF CARE 251 MG/DL (70-110)
[2021-03-22] MEDS: OXYBUTYNIN CHLORIDE 5 MG ER TABLET PO SCH (20:21)
[2021-03-22] MEDS: MORPHINE SULFATE 2 MG/ML SYRINGE IVP PRN (20:28)
[2021-03-22] MEDS: OXYGEN THERAPY IH SCH (20:38)
[2021-03-22 23:24] VITALS: BP 161/106
[2021-03-22] MEDS: HYDROCODONE/ACETAMINOPHEN 5-325 MG TABLET PO PRN (23:27)
[2021-03-23] MEDS: MORPHINE SULFATE 2 MG/ML SYRINGE IVP PRN ×6 (00:40→22:43)
[2021-03-23] MEDS: HYDROCODONE/ACETAMINOPHEN 5-325 MG TABLET PO PRN ×3 (04:22→20:12)
[2021-03-23 05:21] LABS: GLUCOMETER DEV NAME(LOC) 5S.2B; GLUCOSE,POINT OF CARE 379 MG/DL (70-110)
[2021-03-23 06:01] VITALS: BP 182/94
[2021-03-23] MEDS: GlipiZIDE 5 MG TABLET PO SCH (06:06)
[2021-03-23] MEDS: INSULIN LISPRO 100 UNITS/ML SQ PRN ×4 (06:08→20:12)
[2021-03-23] MEDS: CloNIDine HCL 0.1 MG TABLET PO PRN (06:10)
[2021-03-23] MEDS ORDERED: INSULIN LISPRO 100 UNITS/ML SQ ONE (06:15)
[2021-03-23 07:49] VITALS: BP 157/85
[2021-03-23] MEDS: HEPARIN SODIUM,PORCINE 5,000 UNITS/ML VIAL SQ SCH ×3 (08:00→23:28)
[2021-03-23] MEDS: OXYGEN THERAPY IH SCH ×2 (08:08→20:13)
[2021-03-23] MEDS: GABAPENTIN 400 MG CAPSULE PO SCH ×2 (08:09→20:12)
[2021-03-23] MEDS: ATORVASTATIN CALCIUM 20 MG TABLET PO SCH (08:09)
[2021-03-23] MEDS: MethylPREDNISolone SOD SUCC 125 MG/2 ML VIAL IVP SCH ×3 (08:09→23:28)
[2021-03-23] MEDS: ASPIRIN 81 MG DR TABLET PO SCH (08:09)
[2021-03-23] MEDS: TAMSULOSIN HCL 0.4 MG CAPSULE PO SCH (08:09)
[2021-03-23] MEDS: LOSARTAN POTASSIUM 50 MG TABLET PO SCH (08:09)
[2021-03-23] MEDS: PANTOPRAZOLE SODIUM 40 MG DR TABLET PO SCH (08:10)
[2021-03-23] MEDS: MetFORMIN HCL 850 MG TABLET PO SCH ×3 (08:10→17:07)
[2021-03-23] MEDS: CARVEDILOL 6.25 MG TABLET PO SCH ×2 (08:11→20:13)
[2021-03-23] MEDS: DOCUSATE SODIUM 100 MG CAPSULE PO SCH ×2 (08:12→20:13)
[2021-03-23] MEDS: FUROSEMIDE 20 MG TABLET PO SCH (08:12)
[2021-03-23] MEDS ORDERED: INSULIN GLARGINE,HUM.REC.ANLOG 100 UNITS/ML SQ SCH (09:00)
[2021-03-23] MEDS: LEVOFLOXACIN 750 MG/D5% WATER 150 ML IV SCH (11:25)
[2021-03-23] MEDS ORDERED: INSULIN GLARGINE,HUM.REC.ANLOG 100 UNITS/ML SQ ONE (11:30)
[2021-03-23 11:35] VITALS: BP 151/72
[2021-03-23 14:24] LABS: GLUCOMETER DEV NAME(LOC) 5S.1; GLUCOSE,POINT OF CARE 497 MG/DL (70-110)
[2021-03-23 14:24] LABS: GLUCOMETER DEV NAME(LOC) 5S.1; GLUCOSE,POINT OF CARE 589 MG/DL (70-110)
[2021-03-23 15:43] VITALS: BP 132/63
[2021-03-23 19:36] VITALS: BP 152/81
[2021-03-23] MEDS: INSULIN GLARGINE,HUM.REC.ANLOG 100 UNITS/ML SQ SCH (20:11)
[2021-03-23] MEDS: OXYBUTYNIN CHLORIDE 5 MG ER TABLET PO SCH (20:13)
[2021-03-23 23:39] VITALS: BP 138/77
[2021-03-24 01:30] LABS: GLUCOMETER DEV NAME(LOC) 5N.1C; GLUCOSE,POINT OF CARE 368 MG/DL (70-110)
[2021-03-24 01:30] LABS: GLUCOMETER DEV NAME(LOC) 5N.1C; GLUCOSE,POINT OF CARE 369 MG/DL (70-110)
[2021-03-24 01:32] LABS: GLUCOMETER DEV NAME(LOC) 5S.2B; GLUCOSE,POINT OF CARE 448 MG/DL (70-110)
[2021-03-24] MEDS: HYDROCODONE/ACETAMINOPHEN 5-325 MG TABLET PO PRN ×3 (02:11→20:13)
[2021-03-24] MEDS: MORPHINE SULFATE 2 MG/ML SYRINGE IVP PRN ×3 (03:38→15:29)
[2021-03-24 05:21] VITALS: BP 153/77
[2021-03-24] MEDS: GlipiZIDE 5 MG TABLET PO SCH (05:34)
[2021-03-24] MEDS: INSULIN LISPRO 100 UNITS/ML SQ PRN ×3 (05:41→17:22)
[2021-03-24 06:46] LABS: GLUCOMETER DEV NAME(LOC) 5S.1; GLUCOSE,POINT OF CARE 281 MG/DL (70-110)
[2021-03-24 07:39] VITALS: BP 163/81
[2021-03-24] MEDS: OXYGEN THERAPY IH SCH ×2 (08:21→20:03)
[2021-03-24] MEDS: MetFORMIN HCL 850 MG TABLET PO SCH ×3 (08:22→18:11)
[2021-03-24] MEDS: MethylPREDNISolone SOD SUCC 125 MG/2 ML VIAL IVP SCH ×2 (08:22→15:29)
[2021-03-24] MEDS: LOSARTAN POTASSIUM 50 MG TABLET PO SCH (08:23)
[2021-03-24] MEDS: DOCUSATE SODIUM 100 MG CAPSULE PO SCH ×2 (08:23→20:12)
[2021-03-24] MEDS: HEPARIN SODIUM,PORCINE 5,000 UNITS/ML VIAL SQ SCH ×3 (08:23→23:43)
[2021-03-24] MEDS: CARVEDILOL 6.25 MG TABLET PO SCH ×2 (08:23→20:12)
[2021-03-24] MEDS: FUROSEMIDE 20 MG TABLET PO SCH (08:24)
[2021-03-24] MEDS: ATORVASTATIN CALCIUM 20 MG TABLET PO SCH (08:24)
[2021-03-24] MEDS: TAMSULOSIN HCL 0.4 MG CAPSULE PO SCH (08:24)
[2021-03-24] MEDS: GABAPENTIN 400 MG CAPSULE PO SCH ×2 (08:24→20:12)
[2021-03-24] MEDS: ASPIRIN 81 MG DR TABLET PO SCH (08:24)
[2021-03-24] MEDS: PANTOPRAZOLE SODIUM 40 MG DR TABLET PO SCH (08:24)
[2021-03-24] MEDS: INSULIN GLARGINE,HUM.REC.ANLOG 100 UNITS/ML SQ SCH ×2 (08:26→20:17)
[2021-03-24 09:10] LABS: BASOPHILS % (AUTO) 0.2 % (0.0-2.0); EOSINOPHILS % (AUTO) 0 % (1.0-6.0); HEMATOCRIT 34.7 % (41-53); HEMOGLOBIN 10.8 g/dL (13.5-17.5); LYMPHOCYTES % (AUTO) 7.8 % (22.0-44.0); MEAN CORPUSCULAR HEMOGLOBIN 23.3 pg (26.0-34.0); MEAN CORPUSCULAR VOLUME 75 fL (80-100); MONOCYTES # (AUTO) 0.5 K/uL (0.1-1.0); MONOCYTES % (AUTO) 3.8 % (2.0-9.0); NEUTROPHILS # (AUTO) 11.5 K/uL (1.8-7.7); PLATELET COUNT (AUTO) 294 K/uL (150-450); RED BLOOD CELL COUNT(AUTO) 4.61 MIL/uL (4.50-5.90); RED CELL DISTRIBUTION WIDTH 16.8 % (11.5-14.5)
[2021-03-24 09:20] LABS: ANION GAP 5 mmol/L (8-16); CALCIUM, TOTAL 8.8 mg/dL (8.8-10.5); CARBON DIOXIDE 33 mmol/L (22-29); CHLORIDE 98 mmol/L (98-107); CREATININE 1.08 mg/dL (0.60-1.30); GLOMERULAR FILTR. RATE CALC > 60 mL/min (>60); GLUCOSE,RANDOM 286 mg/dL (70-110); POTASSIUM 5.2 mmol/L (3.5-5.1); SODIUM SERUM 136 mmol/L (136-145); UREA NITROGEN, BLOOD 32 mg/dL (7-18)
[2021-03-24 09:26] LABS: NEUTROPHILS % (AUTO) 88.2 % (40.0-70.0)
[2021-03-24] MEDS: LEVOFLOXACIN 750 MG/D5% WATER 150 ML IV SCH (11:04)
[2021-03-24 11:18] VITALS: BP 159/75
[2021-03-24 13:08] LABS: GLUCOMETER DEV NAME(LOC) 5S.2B; GLUCOSE,POINT OF CARE 368 MG/DL (70-110)
[2021-03-24 14:59] LABS: ANION GAP 4 mmol/L (8-16); CALCIUM, TOTAL 9.2 mg/dL (8.8-10.5); CARBON DIOXIDE 32 mmol/L (22-29); CHLORIDE 96 mmol/L (98-107); CREATININE 1.19 mg/dL (0.60-1.30); GLOMERULAR FILTR. RATE CALC > 60 mL/min (>60); GLUCOSE,RANDOM 370 mg/dL (70-110); POTASSIUM 5.2 mmol/L (3.5-5.1); SODIUM SERUM 132 mmol/L (136-145); UREA NITROGEN, BLOOD 33 mg/dL (7-18)
[2021-03-24 15:12] VITALS: BP 148/78
[2021-03-24 20:07] VITALS: BP 151/70
[2021-03-24] MEDS: OXYBUTYNIN CHLORIDE 5 MG ER TABLET PO SCH (20:12)
[2021-03-24] MEDS ORDERED: INSULIN LISPRO 100 UNITS/ML SQ ONE (20:45)
[2021-03-24] MEDS ORDERED: INSULIN GLARGINE,HUM.REC.ANLOG 100 UNITS/ML SQ ONE (20:45)
[2021-03-24 20:57] LABS: GLUCOMETER DEV NAME(LOC) 5N.1C; GLUCOSE,POINT OF CARE 450 MG/DL (70-110)
[2021-03-24 20:57] LABS: GLUCOMETER DEV NAME(LOC) 5N.1C; GLUCOSE,POINT OF CARE 365 MG/DL (70-110)
[2021-03-25] MEDS: ZOLPIDEM TARTRATE 5 MG TABLET PO PRN ×2 (00:13→23:38)
[2021-03-25] MEDS: MethylPREDNISolone SOD SUCC 125 MG/2 ML VIAL IVP SCH ×2 (00:13→08:22)
[2021-03-25] MEDS: HYDROCODONE/ACETAMINOPHEN 5-325 MG TABLET PO PRN ×5 (00:14→21:27)
[2021-03-25 00:27] VITALS: BP 136/61
[2021-03-25] MEDS: MORPHINE SULFATE 2 MG/ML SYRINGE IVP PRN ×4 (02:16→20:25)
[2021-03-25 04:53] VITALS: BP 138/63
[2021-03-25] MEDS: INSULIN LISPRO 100 UNITS/ML SQ PRN ×4 (05:53→20:43)
[2021-03-25] MEDS: GlipiZIDE 5 MG TABLET PO SCH (06:10)
[2021-03-25 06:19] LABS: GLUCOMETER DEV NAME(LOC) 5S.2B; GLUCOSE,POINT OF CARE 228 MG/DL (70-110)
[2021-03-25 06:38] LABS: BASOPHILS % (AUTO) 0.1 % (0.0-2.0); EOSINOPHILS % (AUTO) 0.1 % (1.0-6.0); HEMATOCRIT 36.5 % (41-53); HEMOGLOBIN 11.5 g/dL (13.5-17.5); LYMPHOCYTES # (AUTO) 1.4 K/uL (1.0-4.8); MEAN CORPUSCULAR HEMOGLOBIN 23.7 pg (26.0-34.0); MEAN CORPUSCULAR HGB CONC 31.6 G/dL (31.0-37.0); MEAN CORPUSCULAR VOLUME 75 fL (80-100); MONOCYTES # (AUTO) 1.3 K/uL (0.1-1.0); MONOCYTES % (AUTO) 7.3 % (2.0-9.0); NEUTROPHILS % (AUTO) 84.5 % (40.0-70.0); PLATELET COUNT (AUTO) 322 K/uL (150-450); RED BLOOD CELL COUNT(AUTO) 4.87 MIL/uL (4.50-5.90); RED CELL DISTRIBUTION WIDTH 16.8 % (11.5-14.5)
[2021-03-25 07:09] LABS: ALANINE AMINOTRANSFERASE 45 U/L (12-78); ALBUMIN 2.9 g/dL (3.4-5.0); ALKALINE PHOSPHATASE 105 U/L (46-116); ANION GAP 3 mmol/L (8-16); ASPARTATE AMINOTRANSFERASE 14 U/L (15-37); BILIRUBIN,TOTAL 0.2 mg/dL (0.1-1.0); CALCIUM, TOTAL 9.4 mg/dL (8.8-10.5); CARBON DIOXIDE 32 mmol/L (22-29); CHLORIDE 101 mmol/L (98-107); CREATININE 1.09 mg/dL (0.60-1.30); GLOMERULAR FILTR. RATE CALC > 60 mL/min (>60); GLUCOSE,RANDOM 227 mg/dL (70-110); POTASSIUM 5.3 mmol/L (3.5-5.1); SODIUM SERUM 136 mmol/L (136-145); TOTAL PROTEIN, SERUM 6.8 g/dL (6.4-8.2); UREA NITROGEN, BLOOD 32 mg/dL (7-18)
[2021-03-25 07:30] VITALS: BP 128/58
[2021-03-25] MEDS: GABAPENTIN 400 MG CAPSULE PO SCH ×2 (08:16→20:30)
[2021-03-25] MEDS: MetFORMIN HCL 850 MG TABLET PO SCH ×3 (08:16→17:34)
[2021-03-25] MEDS: TAMSULOSIN HCL 0.4 MG CAPSULE PO SCH (08:16)
[2021-03-25] MEDS: ASPIRIN 81 MG DR TABLET PO SCH (08:16)
[2021-03-25] MEDS: ATORVASTATIN CALCIUM 20 MG TABLET PO SCH (08:17)
[2021-03-25] MEDS: LOSARTAN POTASSIUM 50 MG TABLET PO SCH (08:17)
[2021-03-25] MEDS: HEPARIN SODIUM,PORCINE 5,000 UNITS/ML VIAL SQ SCH ×3 (08:17→23:33)
[2021-03-25] MEDS: FUROSEMIDE 20 MG TABLET PO SCH (08:17)
[2021-03-25] MEDS: CARVEDILOL 6.25 MG TABLET PO SCH ×2 (08:17→20:30)
[2021-03-25] MEDS: PANTOPRAZOLE SODIUM 40 MG DR TABLET PO SCH (08:18)
[2021-03-25] MEDS: DOCUSATE SODIUM 100 MG CAPSULE PO SCH (08:22)
[2021-03-25] MEDS: OXYGEN THERAPY IH SCH ×2 (08:22→20:00)
[2021-03-25] MEDS ORDERED: INSULIN GLARGINE,HUM.REC.ANLOG 100 UNITS/ML SQ SCH (09:00)
[2021-03-25 11:21] VITALS: BP 162/85
[2021-03-25 11:39] LABS: GLUCOMETER DEV NAME(LOC) 5S.1; GLUCOSE,POINT OF CARE 370 MG/DL (70-110)
[2021-03-25] MEDS: CloNIDine HCL 0.1 MG TABLET PO PRN (11:59)
[2021-03-25] MEDS: LEVOFLOXACIN 750 MG/D5% WATER 150 ML IV SCH (12:06)
[2021-03-25] MEDS ORDERED: SODIUM CHLORIDE 0.9% 250 ML IV ONE (12:19)
[2021-03-25] MEDS: MethylPREDNISolone SOD SUCC 40 MG/ML VIAL IVP SCH ×2 (16:26→23:39)
[2021-03-25 17:24] LABS: GLUCOMETER DEV NAME(LOC) 5S.1; GLUCOSE,POINT OF CARE 347 MG/DL (70-110)
[2021-03-25 19:30] VITALS: BP 142/71
[2021-03-25] MEDS: OXYBUTYNIN CHLORIDE 5 MG ER TABLET PO SCH (20:30)
[2021-03-25] MEDS: INSULIN GLARGINE,HUM.REC.ANLOG 100 UNITS/ML SQ SCH (20:45)
[2021-03-25 23:54] VITALS: BP 138/78
[2021-03-26] VITALS (7 sets, daily range): BP systolic 97–148; BP diastolic 59–83
[2021-03-26] MEDS: HYDROCODONE/ACETAMINOPHEN 5-325 MG TABLET PO PRN ×4 (02:08→17:29)
[2021-03-26] MEDS: INSULIN LISPRO 100 UNITS/ML SQ PRN ×4 (05:51→20:32)
[2021-03-26] MEDS: GlipiZIDE 5 MG TABLET PO SCH (05:52)
[2021-03-26] MEDS: HEPARIN SODIUM,PORCINE 5,000 UNITS/ML VIAL SQ SCH ×2 (08:05→17:28)
[2021-03-26] MEDS: ASPIRIN 81 MG DR TABLET PO SCH (08:05)
[2021-03-26] MEDS: ATORVASTATIN CALCIUM 20 MG TABLET PO SCH (08:06)
[2021-03-26] MEDS: FUROSEMIDE 20 MG TABLET PO SCH (08:06)
[2021-03-26] MEDS: PANTOPRAZOLE SODIUM 40 MG DR TABLET PO SCH (08:06)
[2021-03-26] MEDS: CARVEDILOL 6.25 MG TABLET PO SCH ×2 (08:06→20:23)
[2021-03-26] MEDS: TAMSULOSIN HCL 0.4 MG CAPSULE PO SCH (08:06)
[2021-03-26] MEDS: PredniSONE 20 MG TABLET PO SCH (08:06)
[2021-03-26] MEDS: LOSARTAN POTASSIUM 50 MG TABLET PO SCH (08:06)
[2021-03-26] MEDS: MetFORMIN HCL 850 MG TABLET PO SCH ×3 (08:07→17:25)
[2021-03-26] MEDS: GABAPENTIN 400 MG CAPSULE PO SCH ×2 (08:08→20:23)
[2021-03-26] MEDS: INSULIN GLARGINE,HUM.REC.ANLOG 100 UNITS/ML SQ SCH ×2 (08:10→20:31)
[2021-03-26] MEDS: OXYGEN THERAPY IH SCH ×2 (08:20→20:00)
[2021-03-26] MEDS ORDERED: DIGOXIN 250 MCG/ML 2 ML AMP IVP ONE (11:00)
[2021-03-26] MEDS: AMIODARONE HCL 150 MG in DEXTROSE 5%-WATER 97 ML IV ONE ×2 (12:15→13:38)
[2021-03-26] MEDS ORDERED: AMIODARONE HCL 360 MG in DEXTROSE 5%-WATER 242.8 ML IV ONE (12:15)
[2021-03-26] MEDS: LEVOFLOXACIN 750 MG/D5% WATER 150 ML IV SCH (12:20)
[2021-03-26] MEDS ORDERED: AMIODARONE HCL 540 MG in DEXTROSE 5%-WATER 239.2 ML IV ONE (19:00)
[2021-03-26] MEDS: OXYBUTYNIN CHLORIDE 5 MG ER TABLET PO SCH (20:23)
[2021-03-26 20:26] LABS: GLUCOMETER DEV NAME(LOC) 5S.2B; GLUCOSE,POINT OF CARE 377 MG/DL (70-110)
[2021-03-26 20:26] LABS: GLUCOMETER DEV NAME(LOC) 5S.2B; GLUCOSE,POINT OF CARE 327 MG/DL (70-110)
[2021-03-26 20:26] LABS: GLUCOMETER DEV NAME(LOC) 5S.2B; GLUCOSE,POINT OF CARE 225 MG/DL (70-110)
[2021-03-26 20:26] LABS: GLUCOMETER DEV NAME(LOC) 5S.2B; GLUCOSE,POINT OF CARE 292 MG/DL (70-110)
[2021-03-26] MEDS: MORPHINE SULFATE 2 MG/ML SYRINGE IVP PRN (20:35)
[2021-03-26] MEDS ORDERED: SODIUM CHLORIDE 0.9% 250 ML IV ONE (20:36)
[2021-03-26 22:36] LABS: GLUCOMETER DEV NAME(LOC) 5S.1; GLUCOSE,POINT OF CARE 352 MG/DL (70-110)
[2021-03-27] MEDS: HEPARIN SODIUM,PORCINE 5,000 UNITS/ML VIAL SQ SCH ×3 (00:46→17:08)
[2021-03-27] MEDS: MORPHINE SULFATE 2 MG/ML SYRINGE IVP PRN (03:44)
[2021-03-27 05:25] VITALS: BP 144/88
[2021-03-27] MEDS: GlipiZIDE 5 MG TABLET PO SCH (05:40)
[2021-03-27] MEDS: INSULIN LISPRO 100 UNITS/ML SQ PRN ×2 (05:51→12:21)
[2021-03-27 07:32] VITALS: BP 142/81
[2021-03-27] MEDS: MetFORMIN HCL 850 MG TABLET PO SCH ×2 (08:56→13:01)
[2021-03-27] MEDS: OXYGEN THERAPY IH SCH (08:56)
[2021-03-27] MEDS: LOSARTAN POTASSIUM 50 MG TABLET PO SCH (09:00)
[2021-03-27] MEDS: CARVEDILOL 6.25 MG TABLET PO SCH (09:00)
[2021-03-27] MEDS: PredniSONE 20 MG TABLET PO SCH (09:00)
[2021-03-27] MEDS: ASPIRIN 81 MG DR TABLET PO SCH (09:01)
[2021-03-27] MEDS: TAMSULOSIN HCL 0.4 MG CAPSULE PO SCH (09:01)
[2021-03-27] MEDS: PANTOPRAZOLE SODIUM 40 MG DR TABLET PO SCH (09:01)
[2021-03-27] MEDS: FUROSEMIDE 20 MG TABLET PO SCH (09:01)
[2021-03-27] MEDS: ATORVASTATIN CALCIUM 20 MG TABLET PO SCH (09:01)
[2021-03-27] MEDS: GABAPENTIN 400 MG CAPSULE PO SCH (09:01)
[2021-03-27] MEDS: INSULIN GLARGINE,HUM.REC.ANLOG 100 UNITS/ML SQ SCH (09:15)
[2021-03-27 11:15] LABS: BASOPHILS % (AUTO) 0.2 % (0.0-2.0); EOSINOPHILS % (AUTO) 0.3 % (1.0-6.0); HEMATOCRIT 39.4 % (41-53); HEMOGLOBIN 12.3 g/dL (13.5-17.5); LYMPHOCYTES # (AUTO) 1.8 K/uL (1.0-4.8); LYMPHOCYTES % (AUTO) 11.9 % (22.0-44.0); MEAN CORPUSCULAR HEMOGLOBIN 23.5 pg (26.0-34.0); MEAN CORPUSCULAR HGB CONC 31.1 G/dL (31.0-37.0); MEAN CORPUSCULAR VOLUME 76 fL (80-100); MONOCYTES # (AUTO) 1.1 K/uL (0.1-1.0); MONOCYTES % (AUTO) 7.2 % (2.0-9.0); NEUTROPHILS # (AUTO) 12.1 K/uL (1.8-7.7); NEUTROPHILS % (AUTO) 80.4 % (40.0-70.0); PLATELET COUNT (AUTO) 295 K/uL (150-450); RED BLOOD CELL COUNT(AUTO) 5.21 MIL/uL (4.50-5.90); RED CELL DISTRIBUTION WIDTH 17.4 % (11.5-14.5)
[2021-03-27 11:23] VITALS: BP 147/86
[2021-03-27 11:29] LABS: ANION GAP 5 mmol/L (8-16); CALCIUM, TOTAL 9.4 mg/dL (8.8-10.5); CARBON DIOXIDE 32 mmol/L (22-29); CHLORIDE 100 mmol/L (98-107); CREATININE 1.27 mg/dL (0.60-1.30); GLOMERULAR FILTR. RATE CALC > 60 mL/min (>60); GLUCOSE,RANDOM 303 mg/dL (70-110); POTASSIUM 4.9 mmol/L (3.5-5.1); SODIUM SERUM 137 mmol/L (136-145); UREA NITROGEN, BLOOD 37 mg/dL (7-18)
[2021-03-27] MEDS ORDERED: INSULIN REGULAR, HUMAN 100 UNITS/ML SQ SCH (11:30)
[2021-03-27 11:43] LABS: ALANINE AMINOTRANSFERASE 38 U/L (12-78); ALBUMIN 2.7 g/dL (3.4-5.0); ALKALINE PHOSPHATASE 93 U/L (46-116); ASPARTATE AMINOTRANSFERASE 15 U/L (15-37); BILIRUBIN,TOTAL 0.2 mg/dL (0.1-1.0); THYROID STIMULATING HORMONE 0.73 uIU/mL (0.36-3.74); TOTAL PROTEIN, SERUM 6.4 g/dL (6.4-8.2)
[2021-03-27] MEDS ORDERED: AMIODARONE HCL 750 MG in DEXTROSE 5%-WATER 485 ML IV SCH (13:00)
[2021-03-27] MEDS: LEVOFLOXACIN 750 MG/D5% WATER 150 ML IV SCH (13:01)
[2021-03-27 15:48] LABS: GLUCOMETER DEV NAME(LOC) 5S.1; GLUCOSE,POINT OF CARE 228 MG/DL (70-110)
[2021-03-27 15:49] LABS: GLUCOMETER DEV NAME(LOC) 5S.1; GLUCOSE,POINT OF CARE 256 MG/DL (70-110)
[2021-03-27 16:04] VITALS: BP 146/82
[2021-03-27] MEDS: HYDROCODONE/ACETAMINOPHEN 5-325 MG TABLET PO PRN (16:24)
[2021-03-27] MEDS ORDERED: INSULIN GLARGINE,HUM.REC.ANLOG 100 UNITS/ML SQ SCH (21:00)
== END 2021-03-27 17:35 | DRG 163 ==
LOC: EMS 08:43 → 5N 15:25 → 5S 03-22 17:15
PROVIDERS: ADMIT Internal Medicine; ATTEND Internal Medicine
PROC: 0BBD4ZZ Excision of Right Middle Lung Lobe, Percutaneous Endoscopic Approach (ICD-10-PCS; 2021-03-22)
PROC: 0BBF4ZZ Excision of Right Lower Lung Lobe, Percutaneous Endoscopic Approach (ICD-10-PCS; principal; 2021-03-22 15:00)
DX: J18.9 Pneumonia, unspecified organism (principal); J96.01 Acute respiratory failure with hypoxia; J45.901 Unspecified asthma with (acute) exacerbation; J84.9 Interstitial pulmonary disease, unspecified; N17.9 Acute kidney failure, unspecified; Z68.41 Body mass index [BMI] 40.0-44.9, adult; I10 Essential (primary) hypertension; E87.5 Hyperkalemia; E11.9 Type 2 diabetes mellitus without complications; E66.01 Morbid (severe) obesity due to excess calories; E78.5 Hyperlipidemia, unspecified; K59.00 Constipation, unspecified; Z20.822 Contact with and (suspected) exposure to COVID-19; Z86.16 Personal history of COVID-19; G47.33 Obstructive sleep apnea (adult) (pediatric); I48.91 Unspecified atrial fibrillation; Z88.0 Allergy status to penicillin; Z88.8 Allergy status to other drugs, medicaments and biological substances; Z87.01 Personal history of pneumonia (recurrent); Z87.891 Personal history of nicotine dependence; Z99.81 Dependence on supplemental oxygen; Z79.82 Long term (current) use of aspirin; Z79.4 Long term (current) use of insulin
CPT/HCPCS: 71045; 71250; 80048; 80053; 81001; 82164; 82962; 83615; 83690; 84145; 84443; 85025; 85379; 85384; 85651; 86140; 86160; 87040; 87070; 87205; 93005; 94640; 99291; A9575; G0238; J0282; J0330; J0360; J1100; J1160; J1170; J1644; J1815; J1885; J1956; J2250; J2270; J2405; J2704; J2920; J2930; J3010; J3370; J3490; J3535; J7030; J7040; J7050; J7060; J7120; 36415-L1; 36415-TC; J7613; U0003; Z7610

== ENCOUNTER 2021-06-29 15:39 | Inpatient (IN) | payer OTHER ==
[~2021-06-29] VITALS: Ht 180.3 cm; Wt 126.3 kg
[~2021-06-29 15:39] MED LIST changes: -ACET-2247 PO; -ALBU8HFA IH; -AMLO10TA55 PO; -DOCU-270 PO; -FAMO20 PO; -FLUC50TA PO; -GLIP10 PO; +GLIP5 PO; -HEPA500018 SQ; -INSU100V SQ; +LOSA50TA37 PO; +METF-1185 PO; +OMEP20 PO; +OXYB-34 PO; +TAMS-13 PO
[2021-06-29] MEDS ORDERED: MAGNESIUM HYDROXIDE SUSPENSION 30 ML UDCUP PO PRN (16:45)
[2021-06-29] MEDS ORDERED: ONDANSETRON HCL 4 MG/2 ML VIAL IVP PRN (16:45)
[2021-06-29] MEDS ORDERED: DEXTROSE 50%-WATER 25 GM/50 ML SYRINGE IVP PRN (16:45)
[2021-06-29] MEDS ORDERED: ACETAMINOPHEN 325 MG TABLET PO PRN (16:45)
[2021-06-29] MEDS ORDERED: BISACODYL 10 MG RECTAL RECTAL SUPPOSITORY PR PRN (16:45)
[2021-06-29] MEDS ORDERED: ALBUTEROL SULFATE 2.5 MG/0.5 ML NEB SOLUTION NEB PRN (16:45)
[2021-06-29] MEDS ORDERED: DOCUSATE SODIUM 100 MG CAPSULE PO PRN (16:45)
[2021-06-29] MEDS ORDERED: 0.9% SODIUM CHLORIDE 10 ML SYRINGE IVP PRN (16:45)
[2021-06-29] MEDS ORDERED: INSULIN LISPRO 100 UNITS/ML SQ PRN (16:45)
[2021-06-29 16:50] LABS: BASOPHILS % (AUTO) 0.5 % (0.0-2.0); EOSINOPHILS % (AUTO) 3.1 % (1.0-6.0); HEMATOCRIT 31.7 % (41-53); LYMPHOCYTES # (AUTO) 1.1 K/uL (1.0-4.8); LYMPHOCYTES % (AUTO) 15.4 % (22.0-44.0); MEAN CORPUSCULAR HEMOGLOBIN 25.7 pg (26.0-34.0); MEAN CORPUSCULAR HGB CONC 31.6 G/dL (31.0-37.0); MEAN CORPUSCULAR VOLUME 81 fL (80-100); MONOCYTES # (AUTO) 0.6 K/uL (0.1-1.0); MONOCYTES % (AUTO) 8.4 % (2.0-9.0); NEUTROPHILS # (AUTO) 5.1 K/uL (1.8-7.7); NEUTROPHILS % (AUTO) 72.6 % (40.0-70.0); PLATELET COUNT (AUTO) 333 K/uL (150-450); RED BLOOD CELL COUNT(AUTO) 3.91 MIL/uL (4.50-5.90); RED CELL DISTRIBUTION WIDTH 19.1 % (11.5-14.5)
[2021-06-29 16:59] LABS: CALCIUM, TOTAL 9.3 mg/dL (8.8-10.5); CREATININE 1.4 mg/dL (0.60-1.30); POTASSIUM 4.7 mmol/L (3.5-5.1)
[2021-06-29 17:05] LABS: ALBUMIN 3.8 g/dL (3.4-5.0); BILIRUBIN,TOTAL 0.2 mg/dL (0.1-1.0); TOTAL PROTEIN, SERUM 7.9 g/dL (6.4-8.2)
[2021-06-29 17:51] LABS: COVID AG,FIA SOURCE NASOPHARYNGEAL
[2021-06-29 19:06] LABS: ABG A-A DIFF O2 18.2 mmHg (10-20.0); ABG BASE EXCESS 3.2 mmol/L (-2.0-3.0); ABG CARBOXYHEMOGLOBIN 0.7 % (0.0-1.5); ABG HCO3 26.7 mmol/L (22.0-26.0); ABG METHEMOGLOBIN 0.2 % (0.0-1.5); ABG OXYGEN CONTENT 12.7 mL/dL (15.0-23.0); ABG OXYGEN SATURATION 92.5 % (95.0-98.0); ABG OXYHEMOGLOBIN 91.7 % (94.0-100.0); ABG PCO2 50 mmHg (35-45); ABG TOTAL HEMOGLOBIN 9.8 G/dL (12.0-18.0); PO2, ARTERIAL BG 71.5 mmHg (88.0-96.0); SOURCE, BLOOD GAS ARTERIAL; TEMPERATURE, FAHRENHEIT, BG 97.7 FAHREN (96.0-98.6)
[2021-06-29 19:07] LABS: O2 DEVICE,BLOOD GAS ROOM AIR (ROOM AIR); SITE, BLOOD GAS LFT RADIAL
[2021-06-29] MEDS: GABAPENTIN 400 MG CAPSULE PO SCH (20:46)
[2021-06-29] MEDS: CARVEDILOL 6.25 MG TABLET PO SCH (20:46)
[2021-06-29] MEDS: OXYBUTYNIN CHLORIDE 5 MG ER TABLET PO SCH (20:47)
[2021-06-29] MEDS: ALBUTEROL SULFATE 2.5 MG/0.5 ML NEB SOLUTION NEB SCH (21:26)
[2021-06-29] MEDS: IPRATROPIUM BROMIDE 0.5 MG/2.5 ML NEB SOLUTION NEB SCH (21:26)
[2021-06-30] VITALS (7 sets, daily range): BP systolic 134–159; BP diastolic 68–87
[2021-06-30 01:08] LABS: BASOPHILS % (AUTO) 0.6 % (0.0-2.0); EOSINOPHILS % (AUTO) 2.5 % (1.0-6.0); HEMATOCRIT 32.3 % (41-53); HEMOGLOBIN 10.2 g/dL (13.5-17.5); LYMPHOCYTES # (AUTO) 1.1 K/uL (1.0-4.8); LYMPHOCYTES % (AUTO) 10.5 % (22.0-44.0); MEAN CORPUSCULAR HEMOGLOBIN 25.6 pg (26.0-34.0); MEAN CORPUSCULAR HGB CONC 31.6 G/dL (31.0-37.0); MEAN CORPUSCULAR VOLUME 81 fL (80-100); MONOCYTES # (AUTO) 0.6 K/uL (0.1-1.0); MONOCYTES % (AUTO) 6.2 % (2.0-9.0); NEUTROPHILS # (AUTO) 8.2 K/uL (1.8-7.7); NEUTROPHILS % (AUTO) 80.2 % (40.0-70.0); PLATELET COUNT (AUTO) 294 K/uL (150-450); RED BLOOD CELL COUNT(AUTO) 3.99 MIL/uL (4.50-5.90); RED CELL DISTRIBUTION WIDTH 19.3 % (11.5-14.5)
[2021-06-30 01:32] LABS: HEMOGLOBIN A1C 8.9 % (3.8-5.6)
[2021-06-30 01:33] LABS: ALANINE AMINOTRANSFERASE 101 U/L (12-78); ALBUMIN 3.6 g/dL (3.4-5.0); ALKALINE PHOSPHATASE 114 U/L (46-116); ANION GAP 7 mmol/L (8-16); ASPARTATE AMINOTRANSFERASE 36 U/L (15-37); BILIRUBIN,TOTAL 0.2 mg/dL (0.1-1.0); CALCIUM, TOTAL 8.8 mg/dL (8.8-10.5); CARBON DIOXIDE 30 mmol/L (22-29); CHLORIDE 105 mmol/L (98-107); CHOL/HDL RATIO 3.4 (4.2-7.3); CHOLESTEROL 138 mg/dL (131-200); CREATININE 1.26 mg/dL (0.60-1.30); FREE T4 (FREE THYROXINE) 1.05 ng/dL (0.76-1.46); GLOMERULAR FILTR. RATE CALC > 60 mL/min (>60); GLUCOSE,RANDOM 277 mg/dL (70-110); HDL CHOLESTEROL 41 mg/dL (40-60); LDL CHOL (CALC.) 70 mg/dL (0-130); POTASSIUM 4.5 mmol/L (3.5-5.1); SODIUM SERUM 142 mmol/L (136-145); THYROID STIMULATING HORMONE 1.11 uIU/mL (0.36-3.74); TOTAL PROTEIN, SERUM 7.4 g/dL (6.4-8.2); TRIGLYCERIDES 135 mg/dL (15-150); UREA NITROGEN, BLOOD 19 mg/dL (7-18)
[2021-06-30] MEDS: ALBUTEROL SULFATE 2.5 MG/0.5 ML NEB SOLUTION NEB SCH ×4 (02:28→20:00)
[2021-06-30] MEDS: IPRATROPIUM BROMIDE 0.5 MG/2.5 ML NEB SOLUTION NEB SCH ×4 (02:29→20:00)
[2021-06-30] MEDS: PANTOPRAZOLE SODIUM 40 MG DR TABLET PO SCH (10:11)
[2021-06-30] MEDS: HEPARIN SODIUM,PORCINE 5,000 UNITS/ML VIAL SQ SCH ×3 (10:11→16:50)
[2021-06-30] MEDS: ATORVASTATIN CALCIUM 20 MG TABLET PO SCH (10:11)
[2021-06-30] MEDS: FUROSEMIDE 20 MG/2 ML VIAL IVP SCH (10:11)
[2021-06-30] MEDS: ASPIRIN 81 MG CHEWABLE TABLET PO SCH (10:12)
[2021-06-30] MEDS: GABAPENTIN 400 MG CAPSULE PO SCH ×2 (10:12→23:17)
[2021-06-30] MEDS: LOSARTAN POTASSIUM 50 MG TABLET PO SCH (10:12)
[2021-06-30] MEDS: CARVEDILOL 6.25 MG TABLET PO SCH ×2 (10:13→20:36)
[2021-06-30] MEDS: TAMSULOSIN HCL 0.4 MG CAPSULE PO SCH (10:13)
[2021-06-30] MEDS ORDERED: INSULIN GLARGINE,HUM.REC.ANLOG 100 UNITS/ML SQ ONE (18:00)
[2021-06-30 20:07] LABS: ALBUMIN 3.2 g/dL (3.4-5.0); BILIRUBIN,TOTAL 0.4 mg/dL (0.1-1.0); CALCIUM, TOTAL 8.8 mg/dL (8.8-10.5); CREATININE 1.4 mg/dL (0.60-1.30)
[2021-06-30 20:14] LABS: POTASSIUM 5.6 mmol/L (3.5-5.1)
[2021-06-30 20:19] LABS: GLUCOMETER DEV NAME(LOC) 5S.1; GLUCOSE,POINT OF CARE 379 MG/DL (70-110)
[2021-06-30] MEDS: INSULIN LISPRO 100 UNITS/ML SQ PRN ×2 (20:38→22:03)
[2021-06-30] MEDS: OXYBUTYNIN CHLORIDE 5 MG ER TABLET PO SCH (23:17)
[2021-07-01] MEDS: IPRATROPIUM BROMIDE 0.5 MG/2.5 ML NEB SOLUTION NEB SCH ×4 (02:00→19:34)
[2021-07-01] MEDS: ALBUTEROL SULFATE 2.5 MG/0.5 ML NEB SOLUTION NEB SCH ×4 (02:00→19:34)
[2021-07-01 03:35] LABS: GLUCOMETER DEV NAME(LOC) 5S.1; GLUCOSE,POINT OF CARE 300 MG/DL (70-110)
[2021-07-01 03:35] LABS: GLUCOMETER DEV NAME(LOC) 5S.1; GLUCOSE,POINT OF CARE 341 MG/DL (70-110)
[2021-07-01] MEDS: INSULIN LISPRO 100 UNITS/ML SQ PRN ×5 (03:39→21:26)
[2021-07-01] MEDS ORDERED: INSULIN GLARGINE,HUM.REC.ANLOG 100 UNITS/ML SQ ONE (03:45)
[2021-07-01 04:46] VITALS: BP 145/71
[2021-07-01 06:19] LABS: GLUCOMETER DEV NAME(LOC) 5N.3; GLUCOSE,POINT OF CARE 278 MG/DL (70-110)
[2021-07-01 06:19] LABS: GLUCOMETER DEV NAME(LOC) 5N.3; GLUCOSE,POINT OF CARE 251 MG/DL (70-110)
[2021-07-01 07:35] VITALS: BP 129/65
[2021-07-01] MEDS ORDERED: SODIUM ZIRCONIUM CYCLOSILICATE 5 GM POWDER PACKET PO ONE (08:00)
[2021-07-01 08:49] LABS: BASOPHILS % (AUTO) 0.9 % (0.0-2.0); EOSINOPHILS % (AUTO) 2.5 % (1.0-6.0); HEMATOCRIT 32.4 % (41-53); HEMOGLOBIN 10.4 g/dL (13.5-17.5); LYMPHOCYTES # (AUTO) 1.2 K/uL (1.0-4.8); LYMPHOCYTES % (AUTO) 15.6 % (22.0-44.0); MEAN CORPUSCULAR HEMOGLOBIN 25.8 pg (26.0-34.0); MEAN CORPUSCULAR VOLUME 81 fL (80-100); MONOCYTES # (AUTO) 0.6 K/uL (0.1-1.0); MONOCYTES % (AUTO) 7.8 % (2.0-9.0); NEUTROPHILS # (AUTO) 5.7 K/uL (1.8-7.7); NEUTROPHILS % (AUTO) 73.2 % (40.0-70.0); PLATELET COUNT (AUTO) 347 K/uL (150-450); RED BLOOD CELL COUNT(AUTO) 4.02 MIL/uL (4.50-5.90); RED CELL DISTRIBUTION WIDTH 18.7 % (11.5-14.5)
[2021-07-01] MEDS: LOSARTAN POTASSIUM 50 MG TABLET PO SCH (08:50)
[2021-07-01] MEDS: HEPARIN SODIUM,PORCINE 5,000 UNITS/ML VIAL SQ SCH ×3 (08:50→16:40)
[2021-07-01] MEDS: CARVEDILOL 12.5 MG TABLET PO SCH ×2 (08:50→21:24)
[2021-07-01] MEDS: GABAPENTIN 400 MG CAPSULE PO SCH ×2 (08:50→21:24)
[2021-07-01] MEDS: ASPIRIN 81 MG CHEWABLE TABLET PO SCH (08:50)
[2021-07-01] MEDS: PANTOPRAZOLE SODIUM 40 MG DR TABLET PO SCH (08:51)
[2021-07-01] MEDS: ATORVASTATIN CALCIUM 20 MG TABLET PO SCH (08:51)
[2021-07-01] MEDS: TAMSULOSIN HCL 0.4 MG CAPSULE PO SCH (08:51)
[2021-07-01] MEDS: FUROSEMIDE 20 MG/2 ML VIAL IVP SCH (08:52)
[2021-07-01 09:04] LABS: ALANINE AMINOTRANSFERASE 81 U/L (12-78); ALBUMIN 3.4 g/dL (3.4-5.0); ALKALINE PHOSPHATASE 117 U/L (46-116); ANION GAP 5 mmol/L (8-16); ASPARTATE AMINOTRANSFERASE 21 U/L (15-37); BILIRUBIN,TOTAL 0.3 mg/dL (0.1-1.0); CALCIUM, TOTAL 9.1 mg/dL (8.8-10.5); CARBON DIOXIDE 31 mmol/L (22-29); CHLORIDE 101 mmol/L (98-107); CREATININE 1.21 mg/dL (0.60-1.30); GLOMERULAR FILTR. RATE CALC > 60 mL/min (>60); GLUCOSE,RANDOM 288 mg/dL (70-110); POTASSIUM 4.4 mmol/L (3.5-5.1); SODIUM SERUM 137 mmol/L (136-145); TOTAL PROTEIN, SERUM 7.8 g/dL (6.4-8.2); UREA NITROGEN, BLOOD 18 mg/dL (7-18)
[2021-07-01 09:25] LABS: GLUCOMETER DEV NAME(LOC) 5N.3; GLUCOSE,POINT OF CARE 325 MG/DL (70-110)
[2021-07-01 12:25] VITALS: BP 128/70
[2021-07-01 12:41] LABS: GLUCOMETER DEV NAME(LOC) 5N.3; GLUCOSE,POINT OF CARE 276 MG/DL (70-110)
[2021-07-01 16:25] VITALS: BP 133/75
[2021-07-01 16:58] LABS: GLUCOMETER DEV NAME(LOC) 5N.3; GLUCOSE,POINT OF CARE 279 MG/DL (70-110)
[2021-07-01 19:57] VITALS: BP 116/65
[2021-07-01] MEDS ORDERED: INSULIN GLARGINE,HUM.REC.ANLOG 100 UNITS/ML SQ SCH (21:00)
[2021-07-01] MEDS: OXYBUTYNIN CHLORIDE 5 MG ER TABLET PO SCH (21:24)
[2021-07-01] MEDS ORDERED: INSULIN NPH, HUMAN ISOPHANE 100 UNITS/ML SQ ONE (22:00)
[2021-07-01] MEDS ORDERED: INSNPH SQ ×2 (22:05→22:13)
[2021-07-02 00:05] VITALS: BP 119/63
[2021-07-02] MEDS: ALBUTEROL SULFATE 2.5 MG/0.5 ML NEB SOLUTION NEB SCH ×4 (02:50→21:34)
[2021-07-02] MEDS: IPRATROPIUM BROMIDE 0.5 MG/2.5 ML NEB SOLUTION NEB SCH ×2 (02:50→08:00)
[2021-07-02 05:24] VITALS: BP 109/56
[2021-07-02] MEDS: INSULIN LISPRO 100 UNITS/ML SQ PRN ×5 (05:53→20:29)
[2021-07-02 07:06] LABS: BASOPHILS % (AUTO) 0.6 % (0.0-2.0); EOSINOPHILS % (AUTO) 3.5 % (1.0-6.0); HEMATOCRIT 32.1 % (41-53); HEMOGLOBIN 10.1 g/dL (13.5-17.5); LYMPHOCYTES # (AUTO) 1.5 K/uL (1.0-4.8); LYMPHOCYTES % (AUTO) 22.4 % (22.0-44.0); MEAN CORPUSCULAR HEMOGLOBIN 25.4 pg (26.0-34.0); MEAN CORPUSCULAR HGB CONC 31.6 G/dL (31.0-37.0); MEAN CORPUSCULAR VOLUME 81 fL (80-100); MONOCYTES # (AUTO) 0.6 K/uL (0.1-1.0); NEUTROPHILS # (AUTO) 4.4 K/uL (1.8-7.7); NEUTROPHILS % (AUTO) 64.5 % (40.0-70.0); PLATELET COUNT (AUTO) 352 K/uL (150-450); RED BLOOD CELL COUNT(AUTO) 3.98 MIL/uL (4.50-5.90); RED CELL DISTRIBUTION WIDTH 18.6 % (11.5-14.5)
[2021-07-02 07:23] LABS: ALANINE AMINOTRANSFERASE 70 U/L (12-78); ALBUMIN 3.1 g/dL (3.4-5.0); ALKALINE PHOSPHATASE 105 U/L (46-116); ANION GAP 5 mmol/L (8-16); ASPARTATE AMINOTRANSFERASE 23 U/L (15-37); BILIRUBIN,TOTAL 0.2 mg/dL (0.1-1.0); CALCIUM, TOTAL 8.9 mg/dL (8.8-10.5); CARBON DIOXIDE 32 mmol/L (22-29); CHLORIDE 102 mmol/L (98-107); GLOMERULAR FILTR. RATE CALC > 60 mL/min (>60); GLUCOSE,RANDOM 332 mg/dL (70-110); POTASSIUM 4.4 mmol/L (3.5-5.1); SODIUM SERUM 139 mmol/L (136-145); TOTAL PROTEIN, SERUM 6.8 g/dL (6.4-8.2); UREA NITROGEN, BLOOD 21 mg/dL (7-18)
[2021-07-02 07:29] VITALS: BP 128/58
[2021-07-02] MEDS: TAMSULOSIN HCL 0.4 MG CAPSULE PO SCH (08:09)
[2021-07-02] MEDS: GABAPENTIN 400 MG CAPSULE PO SCH ×2 (08:09→20:26)
[2021-07-02] MEDS: ASPIRIN 81 MG CHEWABLE TABLET PO SCH (08:09)
[2021-07-02] MEDS: ATORVASTATIN CALCIUM 20 MG TABLET PO SCH (08:10)
[2021-07-02] MEDS: LOSARTAN POTASSIUM 50 MG TABLET PO SCH (08:10)
[2021-07-02] MEDS: HEPARIN SODIUM,PORCINE 5,000 UNITS/ML VIAL SQ SCH ×2 (08:10)
[2021-07-02] MEDS: PANTOPRAZOLE SODIUM 40 MG DR TABLET PO SCH (08:10)
[2021-07-02] MEDS: CARVEDILOL 12.5 MG TABLET PO SCH ×2 (08:10→20:27)
[2021-07-02] MEDS: FUROSEMIDE 20 MG/2 ML VIAL IVP SCH (08:11)
[2021-07-02] MEDS ORDERED: INSULIN NPH, HUMAN ISOPHANE 100 UNITS/ML SQ SCH ×3 (09:00→21:00)
[2021-07-02 12:00] VITALS: BP 122/56
[2021-07-02 12:14] LABS: GLUCOMETER DEV NAME(LOC) 5N.3; GLUCOSE,POINT OF CARE 314 MG/DL (70-110)
[2021-07-02] MEDS ORDERED: 0.9% SODIUM CHLORIDE 5 ML NEB SOLUTION NEB ONE (14:23)
[2021-07-02] MEDS: IPRATROPIUM BROMIDE 0.5 MG/2.5 ML NEB SOLUTION NEB PRN ×2 (14:30→21:35)
[2021-07-02 15:44] VITALS: BP 136/74
[2021-07-02 17:15] LABS: GLUCOMETER DEV NAME(LOC) 5S.1; GLUCOSE,POINT OF CARE 296 MG/DL (70-110)
[2021-07-02 17:15] LABS: GLUCOMETER DEV NAME(LOC) 5S.1; GLUCOSE,POINT OF CARE 310 MG/DL (70-110)
[2021-07-02] MEDS ORDERED: INSULIN REGULAR, HUMAN 100 UNITS/ML SQ SCH (17:30)
[2021-07-02] MEDS ORDERED: MetFORMIN HCL 850 MG TABLET PO SCH (18:00)
[2021-07-02 19:44] VITALS: BP 116/78
[2021-07-02] MEDS: OXYBUTYNIN CHLORIDE 5 MG ER TABLET PO SCH (20:26)
[2021-07-03 01:18] LABS: GLUCOMETER DEV NAME(LOC) 5S.1; GLUCOSE,POINT OF CARE 312 MG/DL (70-110)
[2021-07-03] MEDS ORDERED: GlipiZIDE 5 MG TABLET PO SCH (06:30)
[2021-07-03] MEDS ORDERED: OMEPRAZOLE 20 MG CAPSULE PO SCH (09:00)
[2021-07-03] MEDS ORDERED: FUROSEMIDE 20 MG TABLET PO SCH (09:00)
[2021-07-03] MEDS ORDERED: INSULIN NPH, HUMAN ISOPHANE 100 UNITS/ML SQ SCH (09:00)
[2021-07-03] MEDS ORDERED: FUROSEMIDE 40 MG TABLET PO SCH (09:00)
[2021-07-03 20:15] LABS: GLUCOMETER DEV NAME(LOC) 5N.3; GLUCOSE,POINT OF CARE 329 MG/DL (70-110)
== END 2021-07-02 22:30 | DRG 291 ==
LOC: EMS 15:39 → 5S 06-30 04:40
PROVIDERS: ADMIT Internal Medicine; ATTEND Internal Medicine
PROC: 5A09357 Assistance with Respiratory Ventilation, Less than 24 Consecutive Hours, Continuous Positive Airway Pressure (ICD-10-PCS; principal; 2021-06-30)
PROC: 5A09357 Assistance with Respiratory Ventilation, Less than 24 Consecutive Hours, Continuous Positive Airway Pressure (ICD-10-PCS; 2021-07-01)
DX: I13.0 Hypertensive heart and chronic kidney disease with heart failure and stage 1 through stage 4 chronic kidney disease, or unspecified chronic kidney disease (principal); I50.21 Acute systolic (congestive) heart failure; J96.01 Acute respiratory failure with hypoxia; N17.9 Acute kidney failure, unspecified; E11.65 Type 2 diabetes mellitus with hyperglycemia; E87.5 Hyperkalemia; E66.9 Obesity, unspecified; I25.10 Atherosclerotic heart disease of native coronary artery without angina pectoris; J44.9 Chronic obstructive pulmonary disease, unspecified; I48.0 Paroxysmal atrial fibrillation; J84.10 Pulmonary fibrosis, unspecified; N18.9 Chronic kidney disease, unspecified; I27.21 Secondary pulmonary arterial hypertension; E78.5 Hyperlipidemia, unspecified; E11.22 Type 2 diabetes mellitus with diabetic chronic kidney disease; Z20.822 Contact with and (suspected) exposure to COVID-19; E78.00 Pure hypercholesterolemia, unspecified; N40.1 Benign prostatic hyperplasia with lower urinary tract symptoms; N39.498 Other specified urinary incontinence; G47.33 Obstructive sleep apnea (adult) (pediatric); Z86.16 Personal history of COVID-19; Z68.38 Body mass index [BMI] 38.0-38.9, adult; Z83.3 Family history of diabetes mellitus; Z87.891 Personal history of nicotine dependence; Z88.0 Allergy status to penicillin; Z88.8 Allergy status to other drugs, medicaments and biological substances
CPT/HCPCS: 36600; 70450; 71045; 71250; 80053; 80061; 82805; 82948; 82962; 83036; 83735; 83880; 84145; 84439; 84443; 84484; 85025; 87081; 93005; 93306; 94640; 94660; 97116; 97162; 97530; 99285; J1644; J1815; J1940; Q9967; 36415-L1; 36415-TC; J7613

== ENCOUNTER 2021-08-12 10:47 | Inpatient (IN) | payer OTHER ==
[~2021-08-12] VITALS: Ht 180.3 cm; Wt 133.1 kg
[~2021-08-12 10:47] MED LIST changes: -INSLAN SQ; +INSNPH SQ; +LOSA-382 PO; -LOSA50TA37 PO
[2021-08-12 12:43] LABS: BASOPHILS % (AUTO) 0.5 % (0.0-2.0); EOSINOPHILS % (AUTO) 4.1 % (1.0-6.0); HEMATOCRIT 30.6 % (41-53); HEMOGLOBIN 9.7 g/dL (13.5-17.5); LYMPHOCYTES % (AUTO) 11.1 % (22.0-44.0); MEAN CORPUSCULAR HEMOGLOBIN 24.8 pg (26.0-34.0); MEAN CORPUSCULAR HGB CONC 31.7 G/dL (31.0-37.0); MEAN CORPUSCULAR VOLUME 78 fL (80-100); MONOCYTES # (AUTO) 0.9 K/uL (0.1-1.0); MONOCYTES % (AUTO) 10.2 % (2.0-9.0); NEUTROPHILS # (AUTO) 6.4 K/uL (1.8-7.7); NEUTROPHILS % (AUTO) 74.1 % (40.0-70.0); PLATELET COUNT (AUTO) 279 K/uL (150-450); RED BLOOD CELL COUNT(AUTO) 3.92 MIL/uL (4.50-5.90); RED CELL DISTRIBUTION WIDTH 16.3 % (11.5-14.5)
[2021-08-12 12:53] LABS: PROTHROMBIN TIME 10.6 SEC (9.4-11.6)
[2021-08-12 12:54] LABS: ANION GAP 3 mmol/L (8-16); CALCIUM, TOTAL 9.1 mg/dL (8.8-10.5); CARBON DIOXIDE 31 mmol/L (22-29); CHLORIDE 104 mmol/L (98-107); CREATININE 1.23 mg/dL (0.60-1.30); GLOMERULAR FILTR. RATE CALC > 60 mL/min (>60); GLUCOSE,RANDOM 139 mg/dL (70-110); POTASSIUM 5.1 mmol/L (3.5-5.1); SODIUM SERUM 138 mmol/L (136-145); UREA NITROGEN, BLOOD 25 mg/dL (7-18)
[2021-08-12 12:59] LABS: ALANINE AMINOTRANSFERASE 51 U/L (12-78); ALBUMIN 3.3 g/dL (3.4-5.0); ALKALINE PHOSPHATASE 110 U/L (46-116); ASPARTATE AMINOTRANSFERASE 23 U/L (15-37); BILIRUBIN,TOTAL 0.3 mg/dL (0.1-1.0); TOTAL PROTEIN, SERUM 7.1 g/dL (6.4-8.2)
[2021-08-12 13:15] LABS: COVID AG,FIA SOURCE NASOPHARYNGEAL
[2021-08-12 14:22] LABS: D-DIMER 0.55 mg/L FEU (0.00-0.50)
[2021-08-12 14:26] LABS: B-TYPE NATRIURETIC PEPTIDE 59 pg/mL (0-100)
[2021-08-12] MEDS ORDERED: SODIUM CHLORIDE 0.9% 100 ML ONE (15:53)
[2021-08-12] MEDS ORDERED: IOHEXOL 350 MG/ML 150 ML VIAL ONE (15:53)
[2021-08-12] MEDS ORDERED: DEXTROSE 50%-WATER 25 GM/50 ML SYRINGE IVP PRN (21:00)
[2021-08-12 22:00] VITALS: BP 147/74
[2021-08-12] MEDS: GABAPENTIN 400 MG CAPSULE PO SCH (22:24)
[2021-08-12] MEDS: OXYBUTYNIN CHLORIDE 5 MG ER TABLET PO SCH (22:24)
[2021-08-12] MEDS: CARVEDILOL 25 MG TABLET PO SCH (22:24)
[2021-08-12] MEDS: FUROSEMIDE 20 MG/2 ML VIAL IVP SCH (22:25)
[2021-08-12] MEDS: INSULIN LISPRO 100 UNITS/ML SQ PRN (22:25)
[2021-08-12] MEDS: HEPARIN SODIUM,PORCINE 5,000 UNITS/ML VIAL SQ SCH (23:24)
[2021-08-12] MEDS: INSULIN NPH, HUMAN ISOPHANE 100 UNITS/ML SQ SCH (23:25)
[2021-08-13 00:10] LABS: APPEARANCE,URINE CLEAR (CLEAR); BILIRUBIN,URINE NEGATIVE (NEGATIVE); GLUCOSE, URINE (UA) 100 mg/dL (NEGATIVE); KETONES,URINE NEGATIVE (NEGATIVE); LEUKOCYTE ESTERASE ,URINE NEGATIVE (NEGATIVE); NITRATE,URINE NEGATIVE (NEGATIVE); OCCULT BLOOD,URINE TRACE (NEGATIVE); PH,URINE 6.5 (5.0-8.0); PROTEIN,URINE NEGATIVE (NEGATIVE); UROBILINOGEN,URINE 0.2 mg/dL (<=1.0)
[2021-08-13 00:34] LABS: BACTERIA,URINE None Seen /HPF (None Seen); RBC,URINE None Seen /HPF (0-2); WBC,URINE None Seen /HPF (0-5)
[2021-08-13] MEDS: INSULIN LISPRO 100 UNITS/ML SQ PRN ×3 (05:43→21:25)
[2021-08-13] MEDS: INSULIN REGULAR, HUMAN 100 UNITS/ML SQ SCH ×2 (05:44→17:26)
[2021-08-13 05:48] VITALS: BP 117/68
[2021-08-13 07:40] LABS: BASOPHILS % (AUTO) 0.5 % (0.0-2.0); EOSINOPHILS % (AUTO) 3.8 % (1.0-6.0); HEMATOCRIT 28.7 % (41-53); HEMOGLOBIN 9.2 g/dL (13.5-17.5); MEAN CORPUSCULAR HEMOGLOBIN 25.4 pg (26.0-34.0); MEAN CORPUSCULAR HGB CONC 32.1 G/dL (31.0-37.0); MEAN CORPUSCULAR VOLUME 79 fL (80-100); MONOCYTES # (AUTO) 0.7 K/uL (0.1-1.0); MONOCYTES % (AUTO) 9.5 % (2.0-9.0); NEUTROPHILS % (AUTO) 72.2 % (40.0-70.0); PLATELET COUNT (AUTO) 272 K/uL (150-450); RED BLOOD CELL COUNT(AUTO) 3.63 MIL/uL (4.50-5.90); RED CELL DISTRIBUTION WIDTH 16.7 % (11.5-14.5)
[2021-08-13 07:58] VITALS: BP 172/83
[2021-08-13 08:02] LABS: ANION GAP 6 mmol/L (8-16); CARBON DIOXIDE 31 mmol/L (22-29); CHLORIDE 97 mmol/L (98-107); CREATININE 1.23 mg/dL (0.60-1.30); GLOMERULAR FILTR. RATE CALC > 60 mL/min (>60); GLUCOSE,RANDOM 214 mg/dL (70-110); POTASSIUM 4.6 mmol/L (3.5-5.1); SODIUM SERUM 134 mmol/L (136-145); UREA NITROGEN, BLOOD 23 mg/dL (7-18)
[2021-08-13] MEDS: TAMSULOSIN HCL 0.4 MG CAPSULE PO SCH (08:29)
[2021-08-13] MEDS: ATORVASTATIN CALCIUM 20 MG TABLET PO SCH (08:29)
[2021-08-13] MEDS: ASPIRIN 81 MG DR TABLET PO SCH (08:29)
[2021-08-13] MEDS: OMEPRAZOLE 20 MG CAPSULE PO SCH (08:29)
[2021-08-13] MEDS: LOSARTAN POTASSIUM 50 MG TABLET PO SCH (08:29)
[2021-08-13] MEDS: HEPARIN SODIUM,PORCINE 5,000 UNITS/ML VIAL SQ SCH ×2 (08:30→16:10)
[2021-08-13] MEDS: OXYBUTYNIN CHLORIDE 5 MG ER TABLET PO SCH ×2 (08:30→21:26)
[2021-08-13] MEDS: GABAPENTIN 400 MG CAPSULE PO SCH ×2 (08:30→21:26)
[2021-08-13] MEDS: CARVEDILOL 25 MG TABLET PO SCH ×2 (08:30→21:26)
[2021-08-13] MEDS: FUROSEMIDE 20 MG/2 ML VIAL IVP SCH (08:30)
[2021-08-13] MEDS: INSULIN NPH, HUMAN ISOPHANE 100 UNITS/ML SQ SCH ×2 (08:39→21:24)
[2021-08-13] MEDS ORDERED: FUROSEMIDE 20 MG TABLET PO SCH (09:00)
[2021-08-13] MEDS ORDERED: METOLAZONE 2.5 MG TABLET PO SCH (09:00)
[2021-08-13 11:02] LABS: GLUCOMETER DEV NAME(LOC) 5S.2B; GLUCOSE,POINT OF CARE 214 MG/DL (70-110)
[2021-08-13 11:02] LABS: GLUCOMETER DEV NAME(LOC) 5S.2B; GLUCOSE,POINT OF CARE 205 MG/DL (70-110)
[2021-08-13 11:32] VITALS: BP 121/75
[2021-08-13 15:28] VITALS: BP 124/77
[2021-08-13 20:00] VITALS: BP 141/76
[2021-08-14] MEDS: HEPARIN SODIUM,PORCINE 5,000 UNITS/ML VIAL SQ SCH ×4 (00:08→23:40)
[2021-08-14 00:14] VITALS: BP 143/80
[2021-08-14 04:34] VITALS: BP 126/66
[2021-08-14 06:16] LABS: GLUCOMETER DEV NAME(LOC) 5N.1C; GLUCOSE,POINT OF CARE 232 MG/DL (70-110)
[2021-08-14 06:16] LABS: GLUCOMETER DEV NAME(LOC) 5N.1C; GLUCOSE,POINT OF CARE 273 MG/DL (70-110)
[2021-08-14 06:16] LABS: GLUCOMETER DEV NAME(LOC) 5N.1C; GLUCOSE,POINT OF CARE 242 MG/DL (70-110)
[2021-08-14] MEDS: INSULIN LISPRO 100 UNITS/ML SQ PRN ×3 (06:29→20:31)
[2021-08-14] MEDS: INSULIN REGULAR, HUMAN 100 UNITS/ML SQ SCH ×2 (06:30→17:37)
[2021-08-14 07:06] LABS: ANION GAP 3 mmol/L (8-16); CALCIUM, TOTAL 8.9 mg/dL (8.8-10.5); CARBON DIOXIDE 34 mmol/L (22-29); CHLORIDE 101 mmol/L (98-107); CREATININE 1.28 mg/dL (0.60-1.30); GLOMERULAR FILTR. RATE CALC > 60 mL/min (>60); GLUCOSE,RANDOM 198 mg/dL (70-110); POTASSIUM 4.5 mmol/L (3.5-5.1); SODIUM SERUM 138 mmol/L (136-145); UREA NITROGEN, BLOOD 25 mg/dL (7-18)
[2021-08-14 07:20] VITALS: BP 148/67
[2021-08-14] MEDS: LOSARTAN POTASSIUM 50 MG TABLET PO SCH (08:41)
[2021-08-14] MEDS: OXYBUTYNIN CHLORIDE 5 MG ER TABLET PO SCH ×2 (08:41→20:29)
[2021-08-14] MEDS: FUROSEMIDE 20 MG/2 ML VIAL IVP SCH ×2 (08:41→20:30)
[2021-08-14] MEDS: CARVEDILOL 25 MG TABLET PO SCH ×2 (08:41→20:29)
[2021-08-14] MEDS: ATORVASTATIN CALCIUM 20 MG TABLET PO SCH (08:42)
[2021-08-14] MEDS: ASPIRIN 81 MG DR TABLET PO SCH (08:42)
[2021-08-14] MEDS: OMEPRAZOLE 20 MG CAPSULE PO SCH (08:42)
[2021-08-14] MEDS: TAMSULOSIN HCL 0.4 MG CAPSULE PO SCH (08:42)
[2021-08-14] MEDS: GABAPENTIN 400 MG CAPSULE PO SCH ×2 (08:42→20:29)
[2021-08-14] MEDS: INSULIN NPH, HUMAN ISOPHANE 100 UNITS/ML SQ SCH ×2 (09:12→20:30)
[2021-08-14 11:55] VITALS: BP 143/82
[2021-08-15] VITALS (7 sets, daily range): BP systolic 123–156; BP diastolic 52–84
[2021-08-15] MEDS: INSULIN REGULAR, HUMAN 100 UNITS/ML SQ SCH ×2 (06:09→17:20)
[2021-08-15] MEDS: INSULIN LISPRO 100 UNITS/ML SQ PRN ×3 (06:10→20:38)
[2021-08-15] MEDS: ONDANSETRON HCL 4 MG/2 ML VIAL IVP PRN ×3 (06:16→20:44)
[2021-08-15] MEDS: ACETAMINOPHEN 325 MG TABLET PO PRN ×3 (06:49→20:44)
[2021-08-15 08:16] LABS: BASOPHILS % (AUTO) 0.7 % (0.0-2.0); EOSINOPHILS % (AUTO) 3.3 % (1.0-6.0); HEMATOCRIT 31.4 % (41-53); HEMOGLOBIN 9.9 g/dL (13.5-17.5); LYMPHOCYTES # (AUTO) 0.7 K/uL (1.0-4.8); LYMPHOCYTES % (AUTO) 10.6 % (22.0-44.0); MEAN CORPUSCULAR HEMOGLOBIN 24.7 pg (26.0-34.0); MEAN CORPUSCULAR HGB CONC 31.5 G/dL (31.0-37.0); MEAN CORPUSCULAR VOLUME 78 fL (80-100); MONOCYTES # (AUTO) 0.8 K/uL (0.1-1.0); MONOCYTES % (AUTO) 11.9 % (2.0-9.0); NEUTROPHILS # (AUTO) 4.9 K/uL (1.8-7.7); NEUTROPHILS % (AUTO) 73.5 % (40.0-70.0); PLATELET COUNT (AUTO) 303 K/uL (150-450); RED CELL DISTRIBUTION WIDTH 16.3 % (11.5-14.5)
[2021-08-15 08:20] LABS: CALCIUM, TOTAL 9.1 mg/dL (8.8-10.5); CREATININE 1.38 mg/dL (0.60-1.30); POTASSIUM 4.3 mmol/L (3.5-5.1)
[2021-08-15] MEDS: INSULIN NPH, HUMAN ISOPHANE 100 UNITS/ML SQ SCH ×2 (09:10→20:37)
[2021-08-15] MEDS: GABAPENTIN 400 MG CAPSULE PO SCH ×2 (09:15→20:25)
[2021-08-15] MEDS: FUROSEMIDE 20 MG/2 ML VIAL IVP SCH ×2 (09:15→20:26)
[2021-08-15] MEDS: HEPARIN SODIUM,PORCINE 5,000 UNITS/ML VIAL SQ SCH ×2 (09:15→17:11)
[2021-08-15] MEDS: OMEPRAZOLE 20 MG CAPSULE PO SCH (09:15)
[2021-08-15] MEDS: ATORVASTATIN CALCIUM 20 MG TABLET PO SCH (09:15)
[2021-08-15] MEDS: CARVEDILOL 25 MG TABLET PO SCH ×2 (09:16→20:25)
[2021-08-15] MEDS: ASPIRIN 81 MG DR TABLET PO SCH (09:16)
[2021-08-15] MEDS: TAMSULOSIN HCL 0.4 MG CAPSULE PO SCH (09:16)
[2021-08-15] MEDS: LOSARTAN POTASSIUM 50 MG TABLET PO SCH (09:16)
[2021-08-15] MEDS: OXYBUTYNIN CHLORIDE 5 MG ER TABLET PO SCH ×2 (09:46→20:25)
[2021-08-15 12:50] LABS: APPEARANCE,URINE CLEAR (CLEAR); BILIRUBIN,URINE NEGATIVE (NEGATIVE); GLUCOSE, URINE (UA) 100 mg/dL (NEGATIVE); KETONES,URINE NEGATIVE (NEGATIVE); LEUKOCYTE ESTERASE ,URINE NEGATIVE (NEGATIVE); NITRATE,URINE NEGATIVE (NEGATIVE); OCCULT BLOOD,URINE NEGATIVE (NEGATIVE); PROTEIN,URINE TRACE (NEGATIVE); UROBILINOGEN,URINE 0.2 mg/dL (<=1.0)
[2021-08-15 12:51] LABS: BACTERIA,URINE None Seen /HPF (None Seen); RBC,URINE None Seen /HPF (0-2); WBC,URINE None Seen /HPF (0-5)
[2021-08-15] MEDS ORDERED: VANCOMYCIN HCL 1.5 GM in DEXTROSE 5%-WATER 250 ML IV ONE (17:00)
[2021-08-15] MEDS ORDERED: SODIUM CHLORIDE 0.9% 500 ML IV ONE (17:23)
[2021-08-16] VITALS (7 sets, daily range): BP systolic 103–130; BP diastolic 61–80
[2021-08-16] MEDS: VANCOMYCIN HCL 1 GM/D5% WATER 200 ML IV SCH ×3 (00:34→21:26)
[2021-08-16] MEDS: HEPARIN SODIUM,PORCINE 5,000 UNITS/ML VIAL SQ SCH ×4 (00:34→23:34)
[2021-08-16] MEDS: ACETAMINOPHEN 325 MG TABLET PO PRN ×2 (00:45→02:57)
[2021-08-16] MEDS: ONDANSETRON HCL 4 MG/2 ML VIAL IVP PRN ×3 (02:57→17:45)
[2021-08-16] MEDS: INSULIN REGULAR, HUMAN 100 UNITS/ML SQ SCH ×2 (06:43→21:25)
[2021-08-16] MEDS: INSULIN LISPRO 100 UNITS/ML SQ PRN ×4 (06:44→21:25)
[2021-08-16 07:02] LABS: BASOPHILS % (AUTO) 0.8 % (0.0-2.0); EOSINOPHILS % (AUTO) 0.5 % (1.0-6.0); HEMATOCRIT 31.4 % (41-53); LYMPHOCYTES # (AUTO) 0.7 K/uL (1.0-4.8); LYMPHOCYTES % (AUTO) 11.5 % (22.0-44.0); MEAN CORPUSCULAR HEMOGLOBIN 24.8 pg (26.0-34.0); MEAN CORPUSCULAR HGB CONC 31.9 G/dL (31.0-37.0); MEAN CORPUSCULAR VOLUME 78 fL (80-100); MONOCYTES # (AUTO) 0.6 K/uL (0.1-1.0); MONOCYTES % (AUTO) 9.7 % (2.0-9.0); NEUTROPHILS # (AUTO) 4.8 K/uL (1.8-7.7); NEUTROPHILS % (AUTO) 77.5 % (40.0-70.0); PLATELET COUNT (AUTO) 304 K/uL (150-450); RED BLOOD CELL COUNT(AUTO) 4.04 MIL/uL (4.50-5.90); RED CELL DISTRIBUTION WIDTH 16.9 % (11.5-14.5)
[2021-08-16 07:13] LABS: CALCIUM, TOTAL 8.5 mg/dL (8.8-10.5); CREATININE 2.06 mg/dL (0.60-1.30); POTASSIUM 4.4 mmol/L (3.5-5.1)
[2021-08-16] MEDS: ASPIRIN 81 MG DR TABLET PO SCH (08:20)
[2021-08-16] MEDS: OMEPRAZOLE 20 MG CAPSULE PO SCH (08:21)
[2021-08-16] MEDS: FUROSEMIDE 20 MG/2 ML VIAL IVP SCH (08:21)
[2021-08-16] MEDS: TAMSULOSIN HCL 0.4 MG CAPSULE PO SCH (08:21)
[2021-08-16] MEDS: ATORVASTATIN CALCIUM 20 MG TABLET PO SCH (08:21)
[2021-08-16] MEDS: CARVEDILOL 25 MG TABLET PO SCH ×2 (08:22→21:26)
[2021-08-16] MEDS: OXYBUTYNIN CHLORIDE 5 MG ER TABLET PO SCH ×2 (08:22→21:26)
[2021-08-16] MEDS: GABAPENTIN 400 MG CAPSULE PO SCH ×2 (08:22→21:26)
[2021-08-16] MEDS ORDERED: *CLINICAL-LEVOFLOXACIN IVPB DOSING CLINICAL ONE (10:00)
[2021-08-16] MEDS: INSULIN NPH, HUMAN ISOPHANE 100 UNITS/ML SQ SCH ×2 (10:01→17:33)
[2021-08-16] MEDS ORDERED: SODIUM CHLORIDE 0.9% 1,000 ML IV ONE (11:45)
[2021-08-16] MEDS ORDERED: BARIUM SULFATE 0.1% SUSPENSION 450 ML BOTTLE ONE ×2 (11:48)
[2021-08-16] MEDS: LEVOFLOXACIN 750 MG/D5% WATER 150 ML IV SCH (12:09)
[2021-08-16] MEDS: HydrALAZINE HCL 50 MG TABLET PO SCH (21:26)
[2021-08-17 03:54] VITALS: BP 136/72
[2021-08-17] MEDS: INSULIN REGULAR, HUMAN 100 UNITS/ML SQ SCH ×2 (05:44→17:41)
[2021-08-17] MEDS: INSULIN LISPRO 100 UNITS/ML SQ PRN ×4 (05:44→21:52)
[2021-08-17 08:09] VITALS: BP 131/72
[2021-08-17] MEDS: ASPIRIN 81 MG DR TABLET PO SCH (08:41)
[2021-08-17] MEDS: HEPARIN SODIUM,PORCINE 5,000 UNITS/ML VIAL SQ SCH ×3 (08:42→23:27)
[2021-08-17] MEDS: TAMSULOSIN HCL 0.4 MG CAPSULE PO SCH (08:42)
[2021-08-17] MEDS: ATORVASTATIN CALCIUM 20 MG TABLET PO SCH (08:42)
[2021-08-17] MEDS: OMEPRAZOLE 20 MG CAPSULE PO SCH (08:42)
[2021-08-17] MEDS: GABAPENTIN 400 MG CAPSULE PO SCH ×2 (08:43→21:33)
[2021-08-17] MEDS: CARVEDILOL 25 MG TABLET PO SCH ×2 (08:43→21:33)
[2021-08-17] MEDS: OXYBUTYNIN CHLORIDE 5 MG ER TABLET PO SCH ×2 (08:43→21:34)
[2021-08-17] MEDS: HydrALAZINE HCL 50 MG TABLET PO SCH ×2 (08:44→21:33)
[2021-08-17] MEDS: VANCOMYCIN HCL 1 GM/D5% WATER 200 ML IV SCH ×2 (08:47→21:33)
[2021-08-17] MEDS: INSULIN NPH, HUMAN ISOPHANE 100 UNITS/ML SQ SCH ×2 (08:50→21:51)
[2021-08-17 09:15] LABS: BASOPHILS % (AUTO) 0.7 % (0.0-2.0); EOSINOPHILS % (AUTO) 3.2 % (1.0-6.0); HEMATOCRIT 28.9 % (41-53); HEMOGLOBIN 9.3 g/dL (13.5-17.5); LYMPHOCYTES # (AUTO) 0.8 K/uL (1.0-4.8); LYMPHOCYTES % (AUTO) 14.1 % (22.0-44.0); MEAN CORPUSCULAR HGB CONC 32.3 G/dL (31.0-37.0); MEAN CORPUSCULAR VOLUME 78 fL (80-100); MONOCYTES # (AUTO) 0.8 K/uL (0.1-1.0); MONOCYTES % (AUTO) 13.2 % (2.0-9.0); NEUTROPHILS % (AUTO) 68.8 % (40.0-70.0); PLATELET COUNT (AUTO) 259 K/uL (150-450); RED BLOOD CELL COUNT(AUTO) 3.73 MIL/uL (4.50-5.90)
[2021-08-17 09:29] LABS: % IRON SATURATION 7.7 % (30-44)
[2021-08-17 09:41] LABS: CALCIUM, TOTAL 8.3 mg/dL (8.8-10.5); CREATININE 1.66 mg/dL (0.60-1.30); MAGNESIUM 1.8 mg/dL (1.80-2.40); PHOSPHORUS 3.5 mg/dL (2.5-4.9); POTASSIUM 4.5 mmol/L (3.5-5.1); VANCOMYCIN,RANDOM 18.6 mcg/mL (25.0-50.0)
[2021-08-17 11:31] VITALS: BP 150/64
[2021-08-17] MEDS: LEVOFLOXACIN 750 MG/D5% WATER 150 ML IV SCH (12:25)
[2021-08-17] MEDS ORDERED: CARV25 PO (13:16)
[2021-08-17] MEDS ORDERED: FURO40 PO (13:18)
[2021-08-17 17:07] VITALS: BP 135/77
[2021-08-17 19:28] VITALS: BP 145/84
[2021-08-17] MEDS: ZOLPIDEM TARTRATE 5 MG TABLET PO PRN (22:34)
[2021-08-18 05:27] VITALS: BP 135/79
[2021-08-18] MEDS: INSULIN LISPRO 100 UNITS/ML SQ PRN ×4 (05:38→21:43)
[2021-08-18] MEDS: INSULIN REGULAR, HUMAN 100 UNITS/ML SQ SCH ×2 (05:39→16:58)
[2021-08-18 07:58] VITALS: BP 142/82
[2021-08-18] MEDS: HydrALAZINE HCL 50 MG TABLET PO SCH ×2 (08:40→21:07)
[2021-08-18] MEDS: HEPARIN SODIUM,PORCINE 5,000 UNITS/ML VIAL SQ SCH ×2 (08:41→16:58)
[2021-08-18] MEDS: ATORVASTATIN CALCIUM 20 MG TABLET PO SCH (08:41)
[2021-08-18] MEDS: CARVEDILOL 25 MG TABLET PO SCH ×2 (08:41→21:07)
[2021-08-18] MEDS: GABAPENTIN 400 MG CAPSULE PO SCH ×2 (08:41→21:07)
[2021-08-18] MEDS: TAMSULOSIN HCL 0.4 MG CAPSULE PO SCH (08:42)
[2021-08-18] MEDS: OMEPRAZOLE 20 MG CAPSULE PO SCH (08:43)
[2021-08-18] MEDS: ASPIRIN 81 MG DR TABLET PO SCH (08:43)
[2021-08-18] MEDS: OXYBUTYNIN CHLORIDE 5 MG ER TABLET PO SCH ×2 (08:44→21:00)
[2021-08-18] MEDS: VANCOMYCIN HCL 1 GM/D5% WATER 200 ML IV SCH ×2 (08:46→21:07)
[2021-08-18] MEDS: INSULIN NPH, HUMAN ISOPHANE 100 UNITS/ML SQ SCH ×2 (08:50→21:44)
[2021-08-18 09:37] LABS: C-REACTIVE PROTEIN QUANT 4.61 mg/dL (0.00-0.30); CALCIUM, TOTAL 8.6 mg/dL (8.8-10.5); CREATININE 1.42 mg/dL (0.60-1.30); MAGNESIUM 2.3 mg/dL (1.80-2.40); PHOSPHORUS 3.5 mg/dL (2.5-4.9); POTASSIUM 4.2 mmol/L (3.5-5.1)
[2021-08-18] MEDS: LEVOFLOXACIN 750 MG/D5% WATER 150 ML IV SCH (11:20)
[2021-08-18 11:48] VITALS: BP 149/84
[2021-08-18 15:52] VITALS: BP 117/62
[2021-08-18 20:18] VITALS: BP 128/72
[2021-08-18] MEDS: ZOLPIDEM TARTRATE 5 MG TABLET PO PRN (22:01)
[2021-08-19] MEDS: HEPARIN SODIUM,PORCINE 5,000 UNITS/ML VIAL SQ SCH ×4 (00:07→23:15)
[2021-08-19 05:31] VITALS: BP 139/75
[2021-08-19] MEDS: INSULIN REGULAR, HUMAN 100 UNITS/ML SQ SCH ×2 (05:48→17:35)
[2021-08-19] MEDS: INSULIN LISPRO 100 UNITS/ML SQ PRN ×4 (05:49→21:02)
[2021-08-19 07:18] LABS: C-REACTIVE PROTEIN QUANT 3.02 mg/dL (0.00-0.30); CALCIUM, TOTAL 8.8 mg/dL (8.8-10.5); CREATININE 1.45 mg/dL (0.60-1.30); POTASSIUM 4.2 mmol/L (3.5-5.1)
[2021-08-19 07:36] VITALS: BP 124/65
[2021-08-19] MEDS: VANCOMYCIN HCL 1 GM/D5% WATER 200 ML IV SCH ×2 (08:57→20:56)
[2021-08-19] MEDS: GABAPENTIN 400 MG CAPSULE PO SCH ×2 (08:58→20:55)
[2021-08-19] MEDS: CARVEDILOL 25 MG TABLET PO SCH ×2 (08:58→20:55)
[2021-08-19] MEDS: OXYBUTYNIN CHLORIDE 5 MG ER TABLET PO SCH ×2 (08:58→21:00)
[2021-08-19] MEDS: OMEPRAZOLE 20 MG CAPSULE PO SCH (08:59)
[2021-08-19] MEDS: HydrALAZINE HCL 50 MG TABLET PO SCH ×2 (08:59→20:55)
[2021-08-19] MEDS: ASPIRIN 81 MG DR TABLET PO SCH (08:59)
[2021-08-19] MEDS: ATORVASTATIN CALCIUM 20 MG TABLET PO SCH (09:00)
[2021-08-19] MEDS: TAMSULOSIN HCL 0.4 MG CAPSULE PO SCH (09:00)
[2021-08-19] MEDS: INSULIN NPH, HUMAN ISOPHANE 100 UNITS/ML SQ SCH ×2 (09:32→21:01)
[2021-08-19 11:02] VITALS: BP 132/72
[2021-08-19] MEDS: LEVOFLOXACIN 750 MG/D5% WATER 150 ML IV SCH (11:54)
[2021-08-19] MEDS ORDERED: SODIUM CHLORIDE 0.9% 0 ML IV ONE (13:00)
[2021-08-19] MEDS ORDERED: SODIUM CHLORIDE 0.9% 250 ML IV ONE (13:35)
[2021-08-19 15:14] VITALS: BP 134/76
[2021-08-19 16:31] LABS: GLUCOMETER DEV NAME(LOC) 5N.1C; GLUCOSE,POINT OF CARE 253 MG/DL (70-110)
[2021-08-19 16:37] LABS: GLUCOMETER DEV NAME(LOC) 5N.1C; GLUCOSE,POINT OF CARE 189 MG/DL (70-110)
[2021-08-19 16:37] LABS: GLUCOMETER DEV NAME(LOC) 5N.1C; GLUCOSE,POINT OF CARE 238 MG/DL (70-110)
[2021-08-19 16:38] LABS: GLUCOMETER DEV NAME(LOC) 5S.1; GLUCOSE,POINT OF CARE 380 MG/DL (70-110)
[2021-08-19 16:38] LABS: GLUCOMETER DEV NAME(LOC) 5N.1C; GLUCOSE,POINT OF CARE 208 MG/DL (70-110)
[2021-08-19 16:38] LABS: GLUCOMETER DEV NAME(LOC) 5N.1C; GLUCOSE,POINT OF CARE 225 MG/DL (70-110)
[2021-08-19 16:38] LABS: GLUCOMETER DEV NAME(LOC) 5S.1; GLUCOSE,POINT OF CARE 199 MG/DL (70-110)
[2021-08-19 16:38] LABS: GLUCOMETER DEV NAME(LOC) 5S.1; GLUCOSE,POINT OF CARE 281 MG/DL (70-110)
[2021-08-19 16:39] LABS: GLUCOMETER DEV NAME(LOC) 5S.1; GLUCOSE,POINT OF CARE 305 MG/DL (70-110)
[2021-08-19 16:39] LABS: GLUCOMETER DEV NAME(LOC) 5N.1C; GLUCOSE,POINT OF CARE 337 MG/DL (70-110)
[2021-08-19 16:39] LABS: GLUCOMETER DEV NAME(LOC) 5S.1; GLUCOSE,POINT OF CARE 284 MG/DL (70-110)
[2021-08-19 16:40] LABS: GLUCOMETER DEV NAME(LOC) 5N.1C; GLUCOSE,POINT OF CARE 272 MG/DL (70-110)
[2021-08-19 16:40] LABS: GLUCOMETER DEV NAME(LOC) 5N.1C; GLUCOSE,POINT OF CARE 283 MG/DL (70-110)
[2021-08-19 16:40] LABS: GLUCOMETER DEV NAME(LOC) 5S.1; GLUCOSE,POINT OF CARE 309 MG/DL (70-110)
[2021-08-19 17:58] LABS: GLUCOMETER DEV NAME(LOC) 5N.3; GLUCOSE,POINT OF CARE 356 MG/DL (70-110)
[2021-08-19 17:58] LABS: GLUCOMETER DEV NAME(LOC) 5N.3; GLUCOSE,POINT OF CARE 351 MG/DL (70-110)
[2021-08-19] MEDS: ZOLPIDEM TARTRATE 5 MG TABLET PO PRN (20:57)
[2021-08-19 20:58] VITALS: BP 149/88
[2021-08-19 23:44] VITALS: BP 123/66
[2021-08-20 04:47] VITALS: BP 143/78
[2021-08-20] MEDS: INSULIN LISPRO 100 UNITS/ML SQ PRN ×4 (05:51→20:37)
[2021-08-20] MEDS: INSULIN REGULAR, HUMAN 100 UNITS/ML SQ SCH ×2 (05:51→17:07)
[2021-08-20 06:31] LABS: GLUCOMETER DEV NAME(LOC) 5N.3; GLUCOSE,POINT OF CARE 352 MG/DL (70-110)
[2021-08-20 07:13] VITALS: BP 150/75
[2021-08-20 08:10] LABS: CALCIUM, TOTAL 8.9 mg/dL (8.8-10.5); CREATININE 1.32 mg/dL (0.60-1.30); POTASSIUM 4.2 mmol/L (3.5-5.1)
[2021-08-20] MEDS: GABAPENTIN 400 MG CAPSULE PO SCH ×2 (08:58→20:35)
[2021-08-20] MEDS: ASPIRIN 81 MG DR TABLET PO SCH (08:58)
[2021-08-20] MEDS: VANCOMYCIN HCL 1 GM/D5% WATER 200 ML IV SCH ×2 (08:58→20:35)
[2021-08-20] MEDS: OXYBUTYNIN CHLORIDE 5 MG ER TABLET PO SCH ×2 (08:59→20:35)
[2021-08-20] MEDS: ATORVASTATIN CALCIUM 20 MG TABLET PO SCH (08:59)
[2021-08-20] MEDS: OMEPRAZOLE 20 MG CAPSULE PO SCH (08:59)
[2021-08-20] MEDS: HydrALAZINE HCL 50 MG TABLET PO SCH ×2 (08:59→20:35)
[2021-08-20] MEDS: CARVEDILOL 25 MG TABLET PO SCH ×2 (08:59→20:35)
[2021-08-20] MEDS: TAMSULOSIN HCL 0.4 MG CAPSULE PO SCH (08:59)
[2021-08-20] MEDS: HEPARIN SODIUM,PORCINE 5,000 UNITS/ML VIAL SQ SCH ×3 (08:59→23:15)
[2021-08-20] MEDS: INSULIN NPH, HUMAN ISOPHANE 100 UNITS/ML SQ SCH ×2 (09:03→20:36)
[2021-08-20 11:02] VITALS: BP 137/77
[2021-08-20] MEDS: LEVOFLOXACIN 750 MG/D5% WATER 150 ML IV SCH (11:05)
[2021-08-20 16:13] VITALS: BP 126/69
[2021-08-20 17:46] LABS: GLUCOMETER DEV NAME(LOC) 5N.1C; GLUCOSE,POINT OF CARE 276 MG/DL (70-110)
[2021-08-20 19:50] VITALS: BP 138/77
[2021-08-20 20:32] LABS: GLUCOMETER DEV NAME(LOC) 5S.2B; GLUCOSE,POINT OF CARE 311 MG/DL (70-110)
[2021-08-20 20:32] LABS: GLUCOMETER DEV NAME(LOC) 5S.2B; GLUCOSE,POINT OF CARE 199 MG/DL (70-110)
[2021-08-20 20:32] LABS: GLUCOMETER DEV NAME(LOC) 5S.2B; GLUCOSE,POINT OF CARE 347 MG/DL (70-110)
[2021-08-20 20:32] LABS: GLUCOMETER DEV NAME(LOC) 5S.2B; GLUCOSE,POINT OF CARE 236 MG/DL (70-110)
[2021-08-20 20:32] LABS: GLUCOMETER DEV NAME(LOC) 5S.2B; GLUCOSE,POINT OF CARE 220 MG/DL (70-110)
[2021-08-20 20:33] LABS: GLUCOMETER DEV NAME(LOC) 5S.2B; GLUCOSE,POINT OF CARE 323 MG/DL (70-110)
[2021-08-20 20:33] LABS: GLUCOMETER DEV NAME(LOC) 5S.2B; GLUCOSE,POINT OF CARE 303 MG/DL (70-110)
[2021-08-20 20:33] LABS: GLUCOMETER DEV NAME(LOC) 5S.2B; GLUCOSE,POINT OF CARE 289 MG/DL (70-110)
[2021-08-20 20:33] LABS: GLUCOMETER DEV NAME(LOC) 5S.2B; GLUCOSE,POINT OF CARE 297 MG/DL (70-110)
[2021-08-20] MEDS: ZOLPIDEM TARTRATE 5 MG TABLET PO PRN (20:44)
[2021-08-20 23:35] VITALS: BP 146/103
[2021-08-21 03:49] VITALS: BP 125/77
[2021-08-21] MEDS: INSULIN LISPRO 100 UNITS/ML SQ PRN ×4 (05:52→20:30)
[2021-08-21] MEDS: INSULIN REGULAR, HUMAN 100 UNITS/ML SQ SCH ×2 (05:52→17:00)
[2021-08-21 06:21] LABS: GLUCOMETER DEV NAME(LOC) 5S.2B; GLUCOSE,POINT OF CARE 247 MG/DL (70-110)
[2021-08-21 07:21] LABS: GLUCOMETER DEV NAME(LOC) 5S.1; GLUCOSE,POINT OF CARE 326 MG/DL (70-110)
[2021-08-21 07:21] LABS: GLUCOMETER DEV NAME(LOC) 5S.1; GLUCOSE,POINT OF CARE 301 MG/DL (70-110)
[2021-08-21 07:40] VITALS: BP 134/66
[2021-08-21] MEDS: GABAPENTIN 400 MG CAPSULE PO SCH ×2 (08:07→20:17)
[2021-08-21] MEDS: OMEPRAZOLE 20 MG CAPSULE PO SCH (08:07)
[2021-08-21] MEDS: CARVEDILOL 25 MG TABLET PO SCH ×2 (08:07→20:16)
[2021-08-21] MEDS: ASPIRIN 81 MG DR TABLET PO SCH (08:07)
[2021-08-21] MEDS: TAMSULOSIN HCL 0.4 MG CAPSULE PO SCH (08:07)
[2021-08-21] MEDS: HydrALAZINE HCL 50 MG TABLET PO SCH ×2 (08:07→20:16)
[2021-08-21] MEDS: ATORVASTATIN CALCIUM 20 MG TABLET PO SCH (08:07)
[2021-08-21] MEDS: OXYBUTYNIN CHLORIDE 5 MG ER TABLET PO SCH ×2 (08:07→20:16)
[2021-08-21] MEDS: HEPARIN SODIUM,PORCINE 5,000 UNITS/ML VIAL SQ SCH ×3 (08:08→23:19)
[2021-08-21] MEDS: VANCOMYCIN HCL 1 GM/D5% WATER 200 ML IV SCH ×2 (08:08→20:16)
[2021-08-21] MEDS: INSULIN NPH, HUMAN ISOPHANE 100 UNITS/ML SQ SCH ×2 (08:10→20:29)
[2021-08-21 08:27] LABS: CALCIUM, TOTAL 9.3 mg/dL (8.8-10.5); CREATININE 1.51 mg/dL (0.60-1.30); POTASSIUM 4.5 mmol/L (3.5-5.1)
[2021-08-21 11:31] VITALS: BP 121/71
[2021-08-21 16:00] VITALS: BP 123/73
[2021-08-21 19:31] VITALS: BP 109/54
[2021-08-21 20:10] LABS: GLUCOMETER DEV NAME(LOC) 5S.2B; GLUCOSE,POINT OF CARE 281 MG/DL (70-110)
[2021-08-21 20:11] LABS: GLUCOMETER DEV NAME(LOC) 5S.2B; GLUCOSE,POINT OF CARE 264 MG/DL (70-110)
[2021-08-21] MEDS: ZOLPIDEM TARTRATE 5 MG TABLET PO PRN (20:59)
[2021-08-21 23:00] LABS: GLUCOMETER DEV NAME(LOC) 5S.1; GLUCOSE,POINT OF CARE 327 MG/DL (70-110)
[2021-08-21 23:51] VITALS: BP 115/50
[2021-08-22 04:08] VITALS: BP 133/67
[2021-08-22] MEDS: INSULIN REGULAR, HUMAN 100 UNITS/ML SQ SCH ×2 (05:47→17:24)
[2021-08-22] MEDS: INSULIN LISPRO 100 UNITS/ML SQ PRN ×3 (05:48→20:26)
[2021-08-22 07:17] VITALS: BP 112/62
[2021-08-22] MEDS: VANCOMYCIN HCL 1 GM/D5% WATER 200 ML IV SCH ×2 (08:27→20:19)
[2021-08-22] MEDS: ASPIRIN 81 MG DR TABLET PO SCH (08:28)
[2021-08-22] MEDS: OMEPRAZOLE 20 MG CAPSULE PO SCH (08:28)
[2021-08-22] MEDS: GABAPENTIN 400 MG CAPSULE PO SCH ×2 (08:28→20:19)
[2021-08-22] MEDS: HEPARIN SODIUM,PORCINE 5,000 UNITS/ML VIAL SQ SCH ×3 (08:28→23:33)
[2021-08-22] MEDS: OXYBUTYNIN CHLORIDE 5 MG ER TABLET PO SCH ×2 (08:29→20:19)
[2021-08-22] MEDS: TAMSULOSIN HCL 0.4 MG CAPSULE PO SCH (08:29)
[2021-08-22] MEDS: HydrALAZINE HCL 50 MG TABLET PO SCH ×2 (08:29→20:19)
[2021-08-22] MEDS: CARVEDILOL 25 MG TABLET PO SCH ×2 (08:29→20:19)
[2021-08-22 08:30] LABS: CALCIUM, TOTAL 8.7 mg/dL (8.8-10.5); CREATININE 1.32 mg/dL (0.60-1.30); POTASSIUM 4.4 mmol/L (3.5-5.1)
[2021-08-22] MEDS: ATORVASTATIN CALCIUM 20 MG TABLET PO SCH (08:30)
[2021-08-22] MEDS: INSULIN NPH, HUMAN ISOPHANE 100 UNITS/ML SQ SCH ×2 (08:35→20:25)
[2021-08-22 08:45] LABS: GLUCOMETER DEV NAME(LOC) 5S.2B; GLUCOSE,POINT OF CARE 328 MG/DL (70-110)
[2021-08-22 11:08] VITALS: BP 106/50
[2021-08-22] MEDS: FUROSEMIDE 40 MG TABLET PO SCH (13:58)
[2021-08-22 15:28] VITALS: BP 106/51
[2021-08-22 16:51] LABS: GLUCOMETER DEV NAME(LOC) 5S.1; GLUCOSE,POINT OF CARE 347 MG/DL (70-110)
[2021-08-22 16:51] LABS: GLUCOMETER DEV NAME(LOC) 5S.1; GLUCOSE,POINT OF CARE 294 MG/DL (70-110)
[2021-08-22 19:30] VITALS: BP 107/66
[2021-08-22] MEDS: ZOLPIDEM TARTRATE 5 MG TABLET PO PRN (20:44)
[2021-08-22 23:48] VITALS: BP 96/54
[2021-08-23 03:57] VITALS: BP 133/76
[2021-08-23] MEDS: INSULIN LISPRO 100 UNITS/ML SQ PRN ×4 (05:44→21:31)
[2021-08-23] MEDS: INSULIN REGULAR, HUMAN 100 UNITS/ML SQ SCH ×2 (05:44→17:46)
[2021-08-23 07:24] VITALS: BP 123/66
[2021-08-23] MEDS: VANCOMYCIN HCL 1 GM/D5% WATER 200 ML IV SCH (08:00)
[2021-08-23 08:52] LABS: CALCIUM, TOTAL 8.9 mg/dL (8.8-10.5); CREATININE 1.47 mg/dL (0.60-1.30); POTASSIUM 4.3 mmol/L (3.5-5.1); VANCOMYCIN,RANDOM 16.4 mcg/mL (25.0-50.0)
[2021-08-23] MEDS: OMEPRAZOLE 20 MG CAPSULE PO SCH (09:49)
[2021-08-23] MEDS: CARVEDILOL 25 MG TABLET PO SCH ×2 (09:49→21:23)
[2021-08-23] MEDS: ASPIRIN 81 MG DR TABLET PO SCH (09:49)
[2021-08-23] MEDS: ATORVASTATIN CALCIUM 20 MG TABLET PO SCH (09:49)
[2021-08-23] MEDS: FUROSEMIDE 40 MG TABLET PO SCH (09:49)
[2021-08-23] MEDS: HydrALAZINE HCL 50 MG TABLET PO SCH ×2 (09:50→21:24)
[2021-08-23] MEDS: OXYBUTYNIN CHLORIDE 5 MG ER TABLET PO SCH ×2 (09:50→21:23)
[2021-08-23] MEDS: TAMSULOSIN HCL 0.4 MG CAPSULE PO SCH (09:50)
[2021-08-23] MEDS: GABAPENTIN 400 MG CAPSULE PO SCH ×2 (09:50→21:24)
[2021-08-23] MEDS: HEPARIN SODIUM,PORCINE 5,000 UNITS/ML VIAL SQ SCH ×3 (09:51→23:32)
[2021-08-23] MEDS: INSULIN NPH, HUMAN ISOPHANE 100 UNITS/ML SQ SCH ×2 (10:12→21:31)
[2021-08-23 11:14] VITALS: BP 133/59
[2021-08-23] MEDS ORDERED: TraMADol HCL 50 MG TABLET PO PRN (14:15)
[2021-08-23 15:17] VITALS: BP 131/61
[2021-08-23] MEDS: CeFAZolin 2 GM/DEXTROSE 50 ML IV SCH ×2 (15:32→21:38)
[2021-08-23 18:21] LABS: GLUCOMETER DEV NAME(LOC) 5N.1C; GLUCOSE,POINT OF CARE 281 MG/DL (70-110)
[2021-08-23 18:21] LABS: GLUCOMETER DEV NAME(LOC) 5N.1C; GLUCOSE,POINT OF CARE 279 MG/DL (70-110)
[2021-08-23 18:21] LABS: GLUCOMETER DEV NAME(LOC) 5N.1C; GLUCOSE,POINT OF CARE 237 MG/DL (70-110)
[2021-08-23 18:22] LABS: GLUCOMETER DEV NAME(LOC) 5N.1C; GLUCOSE,POINT OF CARE 312 MG/DL (70-110)
[2021-08-23 18:22] LABS: GLUCOMETER DEV NAME(LOC) 5N.1C; GLUCOSE,POINT OF CARE 353 MG/DL (70-110)
[2021-08-23 19:37] VITALS: BP 125/71
[2021-08-23] MEDS: ZOLPIDEM TARTRATE 5 MG TABLET PO PRN (21:24)
[2021-08-23 23:30] VITALS: BP 135/82
[2021-08-24 04:29] VITALS: BP 102/55
[2021-08-24] MEDS: CeFAZolin 2 GM/DEXTROSE 50 ML IV SCH ×3 (05:38→21:27)
[2021-08-24] MEDS: INSULIN REGULAR, HUMAN 100 UNITS/ML SQ SCH ×2 (05:40→17:23)
[2021-08-24] MEDS: INSULIN LISPRO 100 UNITS/ML SQ PRN ×4 (05:41→21:35)
[2021-08-24 07:25] VITALS: BP 100/57
[2021-08-24] MEDS: HEPARIN SODIUM,PORCINE 5,000 UNITS/ML VIAL SQ SCH ×3 (08:46→23:11)
[2021-08-24] MEDS: ASPIRIN 81 MG DR TABLET PO SCH (09:26)
[2021-08-24] MEDS: ATORVASTATIN CALCIUM 20 MG TABLET PO SCH (09:26)
[2021-08-24] MEDS: GABAPENTIN 400 MG CAPSULE PO SCH ×2 (09:26→21:28)
[2021-08-24] MEDS: CARVEDILOL 25 MG TABLET PO SCH ×2 (09:26→21:27)
[2021-08-24] MEDS: TAMSULOSIN HCL 0.4 MG CAPSULE PO SCH (09:26)
[2021-08-24] MEDS: OMEPRAZOLE 20 MG CAPSULE PO SCH (09:26)
[2021-08-24] MEDS: OXYBUTYNIN CHLORIDE 5 MG ER TABLET PO SCH ×2 (09:26→21:27)
[2021-08-24] MEDS: HydrALAZINE HCL 50 MG TABLET PO SCH ×2 (09:26→20:04)
[2021-08-24] MEDS: INSULIN NPH, HUMAN ISOPHANE 100 UNITS/ML SQ SCH ×2 (09:27→21:35)
[2021-08-24 09:36] LABS: GLUCOMETER DEV NAME(LOC) 5N.1C; GLUCOSE,POINT OF CARE 310 MG/DL (70-110)
[2021-08-24 09:36] LABS: GLUCOMETER DEV NAME(LOC) 5N.1C; GLUCOSE,POINT OF CARE 373 MG/DL (70-110)
[2021-08-24 10:27] LABS: GLUCOMETER DEV NAME(LOC) 5S.2B; GLUCOSE,POINT OF CARE 331 MG/DL (70-110)
[2021-08-24 19:28] VITALS: BP 111/63
[2021-08-25 00:46] LABS: GLUCOMETER DEV NAME(LOC) 5S.2B; GLUCOSE,POINT OF CARE 310 MG/DL (70-110)
[2021-08-25 05:00] VITALS: BP 121/53
[2021-08-25] MEDS: CeFAZolin 2 GM/DEXTROSE 50 ML IV SCH ×3 (05:29→21:21)
[2021-08-25] MEDS: INSULIN REGULAR, HUMAN 100 UNITS/ML SQ SCH (05:38)
[2021-08-25] MEDS: INSULIN LISPRO 100 UNITS/ML SQ PRN ×4 (05:39→21:23)
[2021-08-25 07:23] VITALS: BP 135/76
[2021-08-25] MEDS: OXYBUTYNIN CHLORIDE 5 MG ER TABLET PO SCH ×2 (09:18→21:15)
[2021-08-25] MEDS: CARVEDILOL 25 MG TABLET PO SCH ×2 (09:18→21:15)
[2021-08-25] MEDS: ASPIRIN 81 MG DR TABLET PO SCH (09:18)
[2021-08-25] MEDS: FUROSEMIDE 20 MG TABLET PO SCH (09:19)
[2021-08-25] MEDS: TAMSULOSIN HCL 0.4 MG CAPSULE PO SCH (09:19)
[2021-08-25] MEDS: OMEPRAZOLE 20 MG CAPSULE PO SCH (09:19)
[2021-08-25] MEDS: HydrALAZINE HCL 50 MG TABLET PO SCH ×2 (09:19→21:15)
[2021-08-25] MEDS: ATORVASTATIN CALCIUM 20 MG TABLET PO SCH (09:20)
[2021-08-25] MEDS: HEPARIN SODIUM,PORCINE 5,000 UNITS/ML VIAL SQ SCH ×2 (09:20→16:38)
[2021-08-25] MEDS: GABAPENTIN 400 MG CAPSULE PO SCH ×2 (09:20→21:15)
[2021-08-25] MEDS: INSULIN NPH, HUMAN ISOPHANE 100 UNITS/ML SQ SCH ×2 (09:24→21:23)
[2021-08-25 12:00] VITALS: BP 149/77
[2021-08-25] MEDS ORDERED: SODIUM CHLORIDE 0.9% 500 ML IV ONE (13:49)
[2021-08-25 14:46] LABS: GLUCOMETER DEV NAME(LOC) 6S.1; GLUCOSE,POINT OF CARE 312 MG/DL (70-110)
[2021-08-25 20:05] LABS: GLUCOMETER DEV NAME(LOC) 6S.1; GLUCOSE,POINT OF CARE 334 MG/DL (70-110)
[2021-08-25 20:40] VITALS: BP 145/76
[2021-08-25] MEDS: ZOLPIDEM TARTRATE 5 MG TABLET PO PRN (21:21)
[2021-08-25 22:01] LABS: GLUCOMETER DEV NAME(LOC) 6N.1; GLUCOSE,POINT OF CARE 312 MG/DL (70-110)
[2021-08-26] MEDS: HEPARIN SODIUM,PORCINE 5,000 UNITS/ML VIAL SQ SCH ×4 (00:14→23:28)
[2021-08-26 04:59] VITALS: BP 124/76
[2021-08-26] MEDS: CeFAZolin 2 GM/DEXTROSE 50 ML IV SCH ×3 (05:46→22:18)
[2021-08-26] MEDS: INSULIN LISPRO 100 UNITS/ML SQ PRN ×4 (05:52→21:14)
[2021-08-26 06:47] LABS: GLUCOMETER DEV NAME(LOC) 5S.1; GLUCOSE,POINT OF CARE 362 MG/DL (70-110)
[2021-08-26 07:40] VITALS: BP 140/79
[2021-08-26] MEDS: TAMSULOSIN HCL 0.4 MG CAPSULE PO SCH (08:08)
[2021-08-26] MEDS: ATORVASTATIN CALCIUM 20 MG TABLET PO SCH (08:09)
[2021-08-26] MEDS: GABAPENTIN 400 MG CAPSULE PO SCH ×2 (08:09→21:15)
[2021-08-26] MEDS: CARVEDILOL 25 MG TABLET PO SCH ×2 (08:09→21:16)
[2021-08-26] MEDS: HydrALAZINE HCL 50 MG TABLET PO SCH ×2 (08:09→21:15)
[2021-08-26] MEDS: OXYBUTYNIN CHLORIDE 5 MG ER TABLET PO SCH ×2 (08:09→21:15)
[2021-08-26] MEDS: OMEPRAZOLE 20 MG CAPSULE PO SCH (08:09)
[2021-08-26] MEDS: ASPIRIN 81 MG DR TABLET PO SCH (08:09)
[2021-08-26 08:21] LABS: GLUCOMETER DEV NAME(LOC) 6N.1; GLUCOSE,POINT OF CARE 346 MG/DL (70-110)
[2021-08-26] MEDS: INSULIN NPH, HUMAN ISOPHANE 100 UNITS/ML SQ SCH ×2 (08:24→21:14)
[2021-08-26 14:01] LABS: GLUCOMETER DEV NAME(LOC) 6S.1; GLUCOSE,POINT OF CARE 305 MG/DL (70-110)
[2021-08-26 15:35] VITALS: BP 127/72
[2021-08-26 19:46] LABS: GLUCOMETER DEV NAME(LOC) 6S.1; GLUCOSE,POINT OF CARE 278 MG/DL (70-110)
[2021-08-26 20:47] VITALS: BP 154/75
[2021-08-26] MEDS: ZOLPIDEM TARTRATE 5 MG TABLET PO PRN (21:17)
[2021-08-27 01:41] LABS: GLUCOMETER DEV NAME(LOC) 6N.1; GLUCOSE,POINT OF CARE 386 MG/DL (70-110)
[2021-08-27 05:11] VITALS: BP 145/85
[2021-08-27] MEDS: INSULIN LISPRO 100 UNITS/ML SQ PRN ×3 (05:48→17:49)
[2021-08-27] MEDS: CeFAZolin 2 GM/DEXTROSE 50 ML IV SCH ×2 (05:53→14:13)
[2021-08-27 07:06] LABS: GLUCOMETER DEV NAME(LOC) 6S.1; GLUCOSE,POINT OF CARE 340 MG/DL (70-110)
[2021-08-27 07:33] VITALS: BP 109/67
[2021-08-27] MEDS: HEPARIN SODIUM,PORCINE 5,000 UNITS/ML VIAL SQ SCH ×2 (09:04→15:49)
[2021-08-27] MEDS: ASPIRIN 81 MG DR TABLET PO SCH (09:05)
[2021-08-27] MEDS: CARVEDILOL 25 MG TABLET PO SCH ×2 (09:05→20:21)
[2021-08-27] MEDS: OXYBUTYNIN CHLORIDE 5 MG ER TABLET PO SCH ×2 (09:05→20:21)
[2021-08-27] MEDS: ATORVASTATIN CALCIUM 20 MG TABLET PO SCH (09:06)
[2021-08-27] MEDS: OMEPRAZOLE 20 MG CAPSULE PO SCH (09:06)
[2021-08-27] MEDS: TAMSULOSIN HCL 0.4 MG CAPSULE PO SCH (09:06)
[2021-08-27] MEDS: FUROSEMIDE 20 MG TABLET PO SCH (09:06)
[2021-08-27] MEDS: GABAPENTIN 400 MG CAPSULE PO SCH ×2 (09:06→20:21)
[2021-08-27] MEDS: INSULIN NPH, HUMAN ISOPHANE 100 UNITS/ML SQ SCH ×2 (09:07→20:40)
[2021-08-27] MEDS: HydrALAZINE HCL 50 MG TABLET PO SCH ×2 (11:20→20:21)
[2021-08-27 11:23] VITALS: BP 152/85
[2021-08-27 15:40] LABS: GLUCOMETER DEV NAME(LOC) 6S.1; GLUCOSE,POINT OF CARE 388 MG/DL (70-110)
[2021-08-27 16:00] VITALS: BP 127/79
[2021-08-27] MEDS ORDERED: CEFA2IV IV (17:25)
[2021-08-27] MEDS ORDERED: HEPA500018 SQ (17:26)
[2021-08-27] MEDS ORDERED: ACET-2247 PO (17:27)
[2021-08-27] MEDS ORDERED: HYDR50TA36 PO (17:27)
[2021-08-27] MEDS ORDERED: INSU100V SQ (17:28)
[2021-08-27 19:11] LABS: GLUCOMETER DEV NAME(LOC) 6N.1; GLUCOSE,POINT OF CARE 312 MG/DL (70-110)
[2021-08-27 19:31] LABS: GLUCOMETER DEV NAME(LOC) 5N.3; GLUCOSE,POINT OF CARE 314 MG/DL (70-110)
[2021-08-27 19:31] LABS: GLUCOMETER DEV NAME(LOC) 5N.3; GLUCOSE,POINT OF CARE 259 MG/DL (70-110)
[2021-08-27 20:04] VITALS: BP 148/71
[2021-08-27] MEDS: ZOLPIDEM TARTRATE 5 MG TABLET PO PRN (20:37)
== END 2021-08-27 21:53 | DRG 291 ==
LOC: EMS 10:47 → 5N 20:00 → 5S 08-15 16:46 → 6S 08-25 11:06
PROVIDERS: ADMIT Internal Medicine; ATTEND Internal Medicine
PROC: 5A09357 Assistance with Respiratory Ventilation, Less than 24 Consecutive Hours, Continuous Positive Airway Pressure (ICD-10-PCS; principal; 2021-08-16)
PROC: 5A09357 Assistance with Respiratory Ventilation, Less than 24 Consecutive Hours, Continuous Positive Airway Pressure (ICD-10-PCS; 2021-08-18)
PROC: 5A09357 Assistance with Respiratory Ventilation, Less than 24 Consecutive Hours, Continuous Positive Airway Pressure (ICD-10-PCS; 2021-08-19)
PROC: 5A09357 Assistance with Respiratory Ventilation, Less than 24 Consecutive Hours, Continuous Positive Airway Pressure (ICD-10-PCS; 2021-08-20)
PROC: 5A09357 Assistance with Respiratory Ventilation, Less than 24 Consecutive Hours, Continuous Positive Airway Pressure (ICD-10-PCS; 2021-08-21)
PROC: 5A09357 Assistance with Respiratory Ventilation, Less than 24 Consecutive Hours, Continuous Positive Airway Pressure (ICD-10-PCS; 2021-08-22)
PROC: 5A09357 Assistance with Respiratory Ventilation, Less than 24 Consecutive Hours, Continuous Positive Airway Pressure (ICD-10-PCS; 2021-08-23)
PROC: 5A09357 Assistance with Respiratory Ventilation, Less than 24 Consecutive Hours, Continuous Positive Airway Pressure (ICD-10-PCS; 2021-08-24)
PROC: 5A09357 Assistance with Respiratory Ventilation, Less than 24 Consecutive Hours, Continuous Positive Airway Pressure (ICD-10-PCS; 2021-08-25)
PROC: 5A09357 Assistance with Respiratory Ventilation, Less than 24 Consecutive Hours, Continuous Positive Airway Pressure (ICD-10-PCS; 2021-08-26)
PROC: 5A09357 Assistance with Respiratory Ventilation, Less than 24 Consecutive Hours, Continuous Positive Airway Pressure (ICD-10-PCS; 2021-08-27)
DX: I13.0 Hypertensive heart and chronic kidney disease with heart failure and stage 1 through stage 4 chronic kidney disease, or unspecified chronic kidney disease (principal); A41.01 Sepsis due to Methicillin susceptible Staphylococcus aureus; I50.41 Acute combined systolic (congestive) and diastolic (congestive) heart failure; E87.1 Hypo-osmolality and hyponatremia; I82.619 Acute embolism and thrombosis of superficial veins of unspecified upper extremity; I82.B19 Acute embolism and thrombosis of unspecified subclavian vein; L03.114 Cellulitis of left upper limb; N17.9 Acute kidney failure, unspecified; J98.11 Atelectasis; Z68.41 Body mass index [BMI] 40.0-44.9, adult; Z20.822 Contact with and (suspected) exposure to COVID-19; G47.33 Obstructive sleep apnea (adult) (pediatric); E87.5 Hyperkalemia; D64.9 Anemia, unspecified; E66.01 Morbid (severe) obesity due to excess calories; E78.5 Hyperlipidemia, unspecified; I80.8 Phlebitis and thrombophlebitis of other sites; E11.22 Type 2 diabetes mellitus with diabetic chronic kidney disease; N18.9 Chronic kidney disease, unspecified; E78.00 Pure hypercholesterolemia, unspecified; K21.9 Gastro-esophageal reflux disease without esophagitis; N40.0 Benign prostatic hyperplasia without lower urinary tract symptoms; Z82.49 Family history of ischemic heart disease and other diseases of the circulatory system; Z79.4 Long term (current) use of insulin; Z83.3 Family history of diabetes mellitus; Z86.16 Personal history of COVID-19; Z87.891 Personal history of nicotine dependence; Z87.892 Personal history of anaphylaxis; Z88.0 Allergy status to penicillin; Z88.8 Allergy status to other drugs, medicaments and biological substances
CPT/HCPCS: 36245; 36569; 71045; 71250; 71275; 74176; 76770; 76937; 80048; 80053; 80202; 81001; 82728; 82962; 83540; 83550; 83735; 83880; 84100; 84145; 84484; 85025; 85379; 85610; 86140; 87040; 87077; 87205; 93005; 93970; 93971; 94660; 99285; J0690; J1644; J1815; J1940; J1956; J2405; J3370; J7030; J7040; J7050; J7060; Q9967; 36415-L1; 36415-TC; U0003